=== PATIENT | male | born 1955 ===

== ENCOUNTER 2018-01-07 07:01 | Observation (INO) | payer OTHER, SELFPAY ==
[2018-01-07] MEDS ORDERED: Sodium Chloride 0.9% 1,000 ML IV ONE ×2 (07:57→12:32)
[2018-01-07] MEDS ORDERED: Sodium Chloride 0.9% 1,000 ML ONE (08:22)
[2018-01-07 08:38] LABS: BASO % 0.9 % (0.0-2.0); EOS # 0.1 K/uL (0.0-0.7); EOS % 2.6 % (0.0-4.0); HEMOGLOBIN 15.5 g/dL (12.0-18.0); LYMPH # 1.5 K/uL (1.0-4.3); LYMPH % 34.8 % (20.0-40.0); MEAN CORPUSCULAR HEMOGLOBIN 29.5 pg (27.0-31.0); MEAN CORPUSCULAR HGB CONC 34.2 g/dL (33.0-37.0); MONO # 0.2 K/uL (0.0-0.8); MONO % 5.5 % (0.0-10.0); NEUT # 2.5 K/uL (1.8-7.0); NEUT % 56.2 % (50.0-75.0); RBC 5.26 Mil/uL (4.40-5.90); RED CELL DISTRIBUTION WIDTH 14.5 % (11.5-14.5); WHITE BLOOD COUNT 4.4 K/uL (4.8-10.8)
[2018-01-07 08:45] LABS: URINE BILIRUBIN NEGATIVE (NEGATIVE); URINE BLOOD NEGATIVE (NEGATIVE); URINE CLARITY Clear (Clear); URINE COLOR Straw (YELLOW); URINE GLUCOSE (UA) NORMAL (Normal); URINE LEUKOCYTE ESTERASE NEG Leu/uL (Negative); URINE PROTEIN NEGATIVE (NEGATIVE); URINE UROBILINOGEN NORMAL mg/dL (0.2-1.0)
[2018-01-07 08:54] LABS: ALB/GLOB RATIO 1.2 (1.0-2.1); ALBUMIN 4.2 g/dL (3.5-5.0); ALT/SGPT 36 U/L (21-72); AST/SGOT 35 U/L (17-59); BLOOD UREA NITROGEN 18 mg/dL (9-20); CALCIUM 9.5 mg/dl (8.6-10.4); GFR AFRICAN-AMERICAN > 60; GFR NON-AFRICAN AMERICAN > 60; LIPASE 215 U/L (23-300)
--- NOTE | 2018-01-07 09:09 | C.PDOC ---
History Of Present Illness 62 year old male with no significant PMH presents to ED with complaints of right inguinal pain for 4 days. He states the pain was mild and intermittent to RLQ and radiates to groin and thigh. He describes it as tightness. He states the pain has progressively worsened. He states today the pain has become more severe and persistent. He states it is painful with movement. He denies any fever, nausea, vomiting, flank or back pain, testicular pain or swelling, penile pain or discharge, dysuria or hematuria, constipation. Reports last bowel movement yesterday and no loss of appetite had breakfast this morning. Time Seen by Provider: 01/07/18 07:44 Chief Complaint (Nursing): Abdominal Pain History Per: Patient History/Exam Limitations: no limitations Onset/Duration Of Symptoms: Days Current Symptoms Are (Timing): Still Present Severity: Moderate Past Medical History Reviewed: Historical Data, Nursing Documentation, Vital Signs Vital Signs: Last Vital Signs Temp 98 F 01/07/18 15:22 Pulse 56 L 01/07/18 15:22 Resp 18 01/07/18 15:22 BP 135/73 01/07/18 15:22 Pulse Ox 98 01/07/18 16:22 - Medical History PMH: HTN, Hypothyroidism Family History: States: No Known Family Hx - Social History Hx Tobacco Use: No Hx Alcohol Use: No Hx Substance Use: No - Immunization History Hx Tetanus Toxoid Vaccination: No Hx Influenza Vaccination: No Hx Pneumococcal Vaccination: No Review Of Systems Constitutional: Negative for: Fever Gastrointestinal: Positive for: Abdominal Pain. Negative for: Nausea, Vomiting , Diarrhea, Constipation Genitourinary: Negative for: Dysuria, Incontinence, Hematuria, Penile Discharge , Scrotal Pain, Penile Pain Musculoskeletal: Negative for: Back Pain Neurological: Negative for: Weakness, Numbness, Headache, Dizziness Physical Exam - Physical Exam Appears: Non-toxic, No Acute Distress, Other (uncomfortable) Skin: Warm, Dry Head: Atraumatic, Normacephalic Eye(s): bilateral: Normal Inspection, EOMI Oral Mucosa: Moist Lips: Normal Appearing Neck: Normal ROM Cardiovascular: Rhythm Regular, No Murmur Respiratory: Normal Breath Sounds, No Accessory Muscle Use Gastrointestinal/Abdominal: Soft, Tenderness (RLQ), No Guarding, No Rebound, No Hernia Male Genital: No Testicular Tenderness, No Testicular Swelling, Circumcised, Other (moderately tender to right inguinal area. No swelling, mass, erythema. Negative phren's sign) Extremity: Other Extremity: Bilateral: Atraumatic, Normal ROM Neurological/Psych: Oriented x3, Normal Speech Gait: Steady ED Course And Treatment - Laboratory Results Result Diagrams: 01/07/18 08:33 01/07/18 08:33 O2 Sat by Pulse Oximetry: 98 - CT Scan/US Testicular Other Rad Studies (CT/US): Read By Radiologist, Radiology Report Reviewed CT/US Interpretation: Accession No. : [id number]. Patient Name / ID : JOSE ANGEL AGUILAR / [id number]. Exam Date : 01/07/2018 09:04:10 ( Approved ). Study Comment : Sex / Age : M / 62Y. Creator : Aman Rincon MD. Dictator : Aman Rincon MD. [employer] : Cleaning Handyman : Aman Rincon MD. Approver2 : Report Date : 01/07/2018 10:10:27. My Comment : . This report is currently processing and HAS NOT BEEN OFFICIALLY SIGNED BY THE PHYSICIAN - ESTIMATED TIME OF APPROVAL IS 01/07/2018 10:16. HISTORY: Right inguinal pain. TECHNIQUE: Realtime sonography through the scrotum with color and doppler flow. COMPARISON: None Available. FINDINGS: RIGHT TESTICLE: Measures 5.1 x 2.4 x 3.4 cm. Normal echotexture and flow. RIGHT EPIDIDYMIS: Grossly unremarkable appearance with normal flow. LEFT TESTICLE: Measures 4.7 x 2.4 x 3.3 cm. Normal echotexture and flow. LEFT EPIDIDYMIS: Grossly unremarkable appearance with normal flow. HYDROCELE: Minimal bilateral complex hydrocele, nonspecific. VARICOCELE: None. OTHER FINDINGS: None. IMPRESSION: No evidence of testicular torsion. No evidence of epididymo- orchitis. Minimal bilateral complex hydrocele, nonspecific. Otherwise unremarkable. Medical Decision Making Medical Decision Making: Impression: Right inguinal pain Plan: * Labs * UA * US * CT Abd/pelvis * IV NS, Toradol * EKG Progress: Patient placed on police aide, sinus bradycardia Labs reviewed and unremarkable. Urine clean Testicular US shows No evidence of testicular torsion. No evidence of epididymo -orchitis. Minimal bilateral complex hydrocele, nonspecific. Otherwise unremarkable. Patient continued to complain of pain, Morphine was orderd and CT pending CT reviewed showing no evidence of appendicitis, diverticulitis, nephrolithiasis or other acute abnormality Patient re-evaluated and remains sinus bradycardia low 40s and he continues to complain of pain, unchanged Discussed case with attending Dr Perez who also examined patient at bedside. Patient has normal femoral and distal pulses, no calf tenderness, no hernia on exam. He recommends additional analgesics and to contact hospitalist for admission of bradycardia and intractable pain Explained results to the patient who is agreeable with plan of obs admission Contact hospitalist Dr Clemente Pierre who accepts case and will come to ED to evaluate. Disposition - Disposition Disposition: HOSPITALIZED Disposition Time: 14:10 Condition: STABLE - POA Present On Arrival: None - Clinical Impression Clinical Impression: Bradycardia, Intractable lower abdominal pain - Scribe Statement The provider has reviewed the documentation as recorded by the Scribe (Wilson Corbett) All medical record entries made by the Scribe were at my direction and personally dictated by me. I have reviewed the chart and agree that the record accurately reflects my personal performance of the history, physical exam, medical decision making, and the department course for this patient. I have also personally directed, reviewed, and agree with the discharge instructions and disposition. Decision To Admit - Pt Status Changed To: Hospital Disposition Of: Observation - . Bed Request Type: Telemetry Admitting Physician: Flaco Pierre Patient Diagnosis: Bradycardia, Intractable lower abdominal pain
[2018-01-07] MEDS ORDERED: Iodixanol 320 MG/ML 100 ML BOTTLE IV ONE (10:09)
--- NOTE | 2018-01-07 10:11 | US ---
HISTORY: Right inguinal pain TECHNIQUE: Realtime sonography through the scrotum with color and doppler flow. COMPARISON: None Available. FINDINGS: RIGHT TESTICLE: Measures 5.1 x 2.4 x 3.4 cm. Normal echotexture and flow. RIGHT EPIDIDYMIS: Grossly unremarkable appearance with normal flow. LEFT TESTICLE: Measures 4.7 x 2.4 x 3.3 cm. Normal echotexture and flow. LEFT EPIDIDYMIS: Grossly unremarkable appearance with normal flow. HYDROCELE: Minimal bilateral complex hydrocele, nonspecific. VARICOCELE: None. OTHER FINDINGS: None. IMPRESSION: No evidence of testicular torsion. No evidence of epididymo-orchitis. Minimal bilateral complex hydrocele, nonspecific. Otherwise unremarkable.
[2018-01-07] MEDS ORDERED: Morphine 4 MG/ML VIAL ONE (11:01)
--- NOTE | 2018-01-07 13:09 | CT ---
PROCEDURE: CT scan abdomen pelvis dated 01/07/2018 HISTORY: RLQ and inguinal pain COMPARISON: Correlation made with testicular ultrasound. TECHNIQUE: Contiguous axial images of the abdomen and pelvis performed of following intravenous injection of approximately 100 cc Visipaque 320 contrast material. Additional 2D sagittal and coronal reformats generated. Radiation dose: Total exam DLP = [address] exam was performed using one or more of the following dose reduction techniques: Automated exposure control, adjustment of the mA and/or kV according to patient size, and/or use of iterative reconstruction technique. . FINDINGS: LOWER THORAX: Lung bases clear. No infiltrate effusion or basilar pneumothorax. Heart size upper limits normal. No significant pericardial. LIVER: Liver exhibits normal size measuring just over 17 cm CC dimension. There appears be minimal fatty hepatic infiltration. No obvious hepatic mass or collection. There are at least 2 small hepatic calcifications consistent with calcified granulomata and prior exposure to granulomatous process. . Portal and splenic veins opacified. GALLBLADDER AND BILE DUCTS: Gallbladder physiologically distended. No evidence intraluminal gallbladder calculi. . PANCREAS: Pancreas appears slightly atrophic and fatty replaced. No pancreatic masses collections or calcifications. SPLEEN: Spleen exhibits normal size. Multiple small calcified granuloma consistent prior exposure to granulomatous disease process. ADRENALS: There are no adrenal lesions. Kidneys demonstrate symmetric nephrograms. No evidence of nephrolithiasis or hydronephrosis. . There are multiple large right renal cyst, the largest of which 2 is exophytic arising from the posterior aspect upper/midpole left kidney which measures approximately 4.1 x 3.6 cm. . KIDNEYS AND URETERS: Unremarkable. No stone or hydronephrosis. BLADDER: Urinary bladder is incompletely distended which part accounts for thick-walled appearance. Muscular hypertrophy presumably contributes. Possibility of a cystitis in a male patient less likely though not excluded. Other intrinsic wall abnormality also not excluded. REPRODUCTIVE: Prostate gland measures approximately 5.1 cm in transverse dimension. Prostatic calcifications are present. APPENDIX: Normal-appearing appendix. BOWEL: Evaluation of the bowel is limited due to the lack of oral contrast material. Stomach is incompletely distended. Visualized loops of small bowel exhibit normal contour and caliber. No evidence mechanical small bowel obstruction. Stool is seen throughout the large bowel. There are multiple colonic diverticula seen along the sigmoid, descending and transverse colon. No radiographic evidence acute diverticulitis PERITONEUM: Unremarkable. No fluid collection. No free air. Small fat containing umbilical hernia. LYMPH NODES: Unremarkable. No enlarged lymph nodes. VASCULATURE: Unremarkable. No aortic aneurysm. BONES: Multilevel degenerative spondylosis of the lower lumbar and to a lesser degree lower thoracic spine. No acute compression fractures no retropulsed fragments. OTHER FINDINGS: Previously described bilateral hydroceles seen on recent testicular ultrasound less well seen on this study. IMPRESSION: Splenic and hepatic calcified granulomata consistent with prior exposure to granulomatous disease process. . Multiple right renal cyst. Diverticulosis without radiographic evidence acute diverticulitis. Wall thickening of the urinary bladder likely due to incomplete distention and muscular hypertrophy however cystitis or other intrinsic bladder wall lesion not excluded.
[2018-01-07] MEDS ORDERED: LIDOCAINE IV STA (14:08)
[2018-01-07] MEDS ORDERED: SODIUM CHLORIDE 0.9% IV STA (14:08)
[2018-01-07 17:54] VITALS: RESP 20
--- NOTE | 2018-01-07 20:02 | CP.PCM.HP ---
History of Present Illness - History of Present Illness History of Present Illness: Patient is a 62M with a PMH of hypothyroidism and HTN who comes to the ED with a CC of R. Groin pain. He states the pain started 4 days ago and has worsened since then. The pain was intermittent in the beginning but has since become constant. Nothing makes the pain better but walking and sitting up makes the pain worse. He describes it as sharp in nature and radiating to the right hip. He denies any [ain with urination, hematuria, cva tenderness, frequency, abdominal pain or nausea or vomiting, fever or chills. Denies chest pain or SOB. Cannot identify a precipitating factor. Of note the patient is bradycardic in the 50s but was like this on prior admissions and is asymptomatic. PMH: Hypothyroid and HTN PSH: none FH: unremarkable SH: denies smoking drinking and drugs All: NKA Present on Admission - Present on Admission Any Indicators Present on Admission: No Review of Systems - Review of Systems Review of Systems: as per HPI Past Patient History - Infectious Disease Hx of Infectious Diseases: None - Past Social History Smoking Status: Never Smoked - CARDIAC Hx Hypertension: Yes - ENDOCRINE/METABOLIC Hx Hypothyroidism: Yes - PSYCHIATRIC Hx Substance Use: No - ANESTHESIA Hx Anesthesia: No Meds Allergies/Adverse Reactions: Allergies Allergy/AdvReac Type Severity Reaction Status Date / Time Penicillins Allergy ANAPHYLAXIS Verified 01/07/18 07:17 Physical Exam - Constitutional Appears: Well - Head Exam Head Exam: ATRAUMATIC, NORMAL INSPECTION, NORMOCEPHALIC - Eye Exam Eye Exam: EOMI, Normal appearance, PERRL Pupil Exam: NORMAL ACCOMODATION, PERRL - ENT Exam ENT Exam: Mucous Membranes Moist, Normal Exam - Neck Exam Neck exam: Positive for: Normal Inspection - Respiratory Exam Respiratory Exam: Clear to Auscultation Bilateral, NORMAL BREATHING PATTERN - Cardiovascular Exam Cardiovascular Exam: REGULAR RHYTHM - GI/Abdominal Exam GI & Abdominal Exam: Normal Bowel Sounds, Soft. absent: Tenderness - Exam Exam: NORMAL INSPECTION. absent: Scrotal Swelling, Testicular Tenderness ( tenderness over the right inguinal ligament and proximal portion or Right thigh) - Extremities Exam Extremities exam: Positive for: normal inspection - Back Exam Back exam: NORMAL INSPECTION - Neurological Exam Neurological exam: Alert, CN II-XII Intact, Normal Gait, Oriented x3, Reflexes Normal - Psychiatric Exam Psychiatric exam: Normal Affect, Normal Mood - Skin Skin Exam: Dry, Intact, Normal Color, Warm Results - Vital Signs Recent Vital Signs: Last Vital Signs Temp 97.6 F 01/07/18 17:45 Pulse 42 L 01/07/18 17:45 Resp 20 01/07/18 17:45 BP 148/84 01/07/18 17:45 Pulse Ox 99 01/07/18 17:45 - Labs Result Diagrams: 01/07/18 08:33 01/07/18 08:33 Labs: Laboratory Results - last 24 hr 01/07/18 01/07/18 01/07/18 08:33 08:33 08:33 WBC 4.4 L RBC 5.26 Hgb 15.5 Hct 45.2 MCV 86.0 MCH 29.5 MCHC 34.2 RDW 14.5 Plt Count 294 MPV 8.0 Neut % (Auto) 56.2 Lymph % (Auto) 34.8 [place] % (Auto) 5.5 Eos % (Auto) 2.6 Baso % (Auto) 0.9 Neut # (Auto) 2.5 Lymph # (Auto) 1.5 [place] # (Auto) 0.2 Eos # (Auto) 0.1 Baso # (Auto) 0.0 Sodium 143 Potassium 4.5 Chloride 108 H Carbon Dioxide 22 Anion Gap 18 BUN 18 Creatinine 1.0 Est GFR ( Amer) > 60 Est GFR (Non-Af Amer) > 60 Random Glucose 110 Calcium 9.5 Total Bilirubin 0.6 AST 35 ALT 36 Alkaline Phosphatase 44 Total Protein 7.7 Albumin 4.2 Globulin 3.5 Albumin/Globulin Ratio 1.2 Lipase 215 Urine Color Straw Urine Clarity Clear Urine pH 5.0 Ur Specific [place] 1.016 Urine Protein Negative Urine Glucose (UA) Normal Urine Ketones Negative Urine Blood Negative Urine Nitrate Negative Urine Bilirubin Negative Urine Urobilinogen Normal Ur Leukocyte Esterase Neg Urine WBC (Auto) < 1 Assessment & Plan (1) Groin pain Assessment and Plan: Toradol 30 Q6H Ice pack Q1H Status: Acute Priority: Medium (2) Hypothyroidism Assessment and Plan: levothyroxine 50 PO QD check TSH Status: Chronic Priority: High (3) HTN (hypertension) Assessment and Plan: Zestril 10 PO qd HCTZ 12.5 PO QD Status: Chronic Priority: Medium (4) Prophylactic measure Assessment and Plan: scd GI PPX not indicated at this time Status: Chronic Priority: Low
[2018-01-08] MEDS ORDERED: Levothyroxine 50 MCG TAB PO SCH (06:30)
[2018-01-08 08:04] VITALS: BP 134/81; PULSE 44; TEMP 97.5; O2SAT 98
[2018-01-08] MEDS ORDERED: Enoxaparin 40 mg Syringe SC SCH (10:00)
--- NOTE | 2018-01-08 11:01 | CP.PCM.DIS ---
Provider - Provider Date of Admission: 01/07/18 14:14 Attending physician: Flaco Pierre MD Primary care physician: None Consults: None Time Spent in preparation of Discharge (in minutes): 45 Diagnosis - Discharge Diagnosis (1) Groin pain Status: Acute Priority: Medium (2) Hypothyroidism Status: Chronic Priority: High (3) HTN (hypertension) Status: Chronic Priority: Medium (4) Prophylactic measure Status: Chronic Priority: Low Hospital Course - Lab Results Lab Results: Micro Results 01/07/18 08:33 Urine Urine Culture - Final No Growth (<1,000 CFU/ML) Most Recent Lab Values WBC 4.4 K/uL (4.8-10.8) L 01/07/18 08:33 RBC 5.26 Mil/uL (4.40-5.90) 01/07/18 08:33 Hgb 15.5 g/dL (12.0-18.0) 01/07/18 08:33 Hct 45.2 % (35.0-51.0) 01/07/18 08:33 MCV 86.0 fL (80.0-94.0) 01/07/18 08:33 MCH 29.5 pg (27.0-31.0) 01/07/18 08:33 MCHC 34.2 g/dL (33.0-37.0) 01/07/18 08:33 RDW 14.5 % (11.5-14.5) 01/07/18 08:33 Plt Count 294 K/uL (130-400) 01/07/18 08:33 MPV 8.0 fL (7.2-11.7) 01/07/18 08:33 Neut % (Auto) 56.2 % (50.0-75.0) 01/07/18 08:33 Lymph % (Auto) 34.8 % (20.0-40.0) 01/07/18 08:33 [place] % (Auto) 5.5 % (0.0-10.0) 01/07/18 08:33 Eos % (Auto) 2.6 % (0.0-4.0) 01/07/18 08:33 Baso % (Auto) 0.9 % (0.0-2.0) 01/07/18 08:33 Neut # (Auto) 2.5 K/uL (1.8-7.0) 01/07/18 08:33 Lymph # (Auto) 1.5 K/uL (1.0-4.3) 01/07/18 08:33 [place] # (Auto) 0.2 K/uL (0.0-0.8) 01/07/18 08:33 Eos # (Auto) 0.1 K/uL (0.0-0.7) 01/07/18 08:33 Baso # (Auto) 0.0 K/uL (0.0-0.2) 01/07/18 08:33 Sodium 143 mmol/L (132-148) 01/07/18 08:33 Potassium 4.5 mmol/L (3.6-5.2) 01/07/18 08:33 Chloride 108 mmol/L (98-107) H 01/07/18 08:33 Carbon Dioxide 22 mmol/L (22-30) 01/07/18 08:33 Anion Gap 18 (10-20) 01/07/18 08:33 BUN 18 mg/dL (9-20) 01/07/18 08:33 Creatinine 1.0 mg/dL (0.8-1.5) 01/07/18 08:33 Est GFR ( Amer) > 60 01/07/18 08:33 Est GFR (Non-Af Amer) > 60 01/07/18 08:33 Random Glucose 110 mg/dL (75-110) 01/07/18 08:33 Calcium 9.5 mg/dl (8.6-10.4) 01/07/18 08:33 Total Bilirubin 0.6 mg/dL (0.2-1.3) 01/07/18 08:33 AST 35 U/L (17-59) 01/07/18 08:33 ALT 36 U/L (21-72) 01/07/18 08:33 Alkaline Phosphatase 44 U/L (38-126) 01/07/18 08:33 Total Protein 7.7 g/dL (6.3-8.3) 01/07/18 08:33 Albumin 4.2 g/dL (3.5-5.0) 01/07/18 08:33 Globulin 3.5 gm/dL (2.2-3.9) 01/07/18 08:33 Albumin/Globulin Ratio 1.2 (1.0-2.1) 01/07/18 08:33 Lipase 215 U/L (23-300) 01/07/18 08:33 TSH 3rd Generation 8.68 mIU/L (0.46-4.68) H 01/08/18 08:13 Urine Color Straw (YELLOW) 01/07/18 08:33 Urine Clarity Clear (Clear) 01/07/18 08:33 Urine pH 5.0 (5.0-8.0) 01/07/18 08:33 Ur Specific [place] 1.016 (1.003-1.030) 01/07/18 08:33 Urine Protein Negative mg/dL (NEGATIVE) 01/07/18 08:33 Urine Glucose (UA) Normal mg/dL (Normal) 01/07/18 08:33 Urine Ketones Negative mg/dL (NEGATIVE) 01/07/18 08:33 Urine Blood Negative (NEGATIVE) 01/07/18 08:33 Urine Nitrate Negative (NEGATIVE) 01/07/18 08:33 Urine Bilirubin Negative (NEGATIVE) 01/07/18 08:33 Urine Urobilinogen Normal mg/dL (0.2-1.0) 01/07/18 08:33 Ur Leukocyte Esterase Neg Liz/uL (Negative) 01/07/18 08:33 Urine WBC (Auto) < 1 /hpf (0-5) 01/07/18 08:33 - Hospital Course Hospital Course: Patient is a 62M with a PMH of hypothyroidism and HTN who comes to the ED with a CC of R. Groin pain. He states the pain started 4 days ago and has worsened since then. The pain was intermittent in the beginning but has since become constant. Nothing makes the pain better but walking and sitting up makes the pain worse. He describes it as sharp in nature and radiating to the right hip. He denies any [ain with urination, hematuria, cva tenderness, frequency, abdominal pain or nausea or vomiting, fever or chills. Denies chest pain or SOB. Cannot identify a precipitating factor. Of note the patient is bradycardic in the 50s but was like this on prior admissions and is asymptomatic. Hospital course: Patient had groin pain with all negaive studies. They showed bilateral hydroceles. Patient was given toradol for the pain as well as flexeril. Pain improved but did not resolve. [place] likely MSK in nature. Patient was bradycardic in the 40-50s but was like this on his last admission. Is most likely related to his hypothyroidsim. I tested TSH which was elevated indicated he is most likely undertreated with his synthroid. He was instructed to follow up in the clinic. Discharge Exam - Head Exam Head Exam: ATRAUMATIC, NORMAL INSPECTION, NORMOCEPHALIC - Eye Exam Eye Exam: EOMI, Normal appearance, PERRL Pupil Exam: NORMAL ACCOMODATION, PERRL - Respiratory Exam Respiratory Exam: Clear to PA & Lateral, NORMAL BREATHING PATTERN, UNREMARKABLE - Cardiovascular Exam Cardiovascular Exam: REGULAR RHYTHM - GI/Abdominal Exam GI & Abdominal Exam: Normal Bowel Sounds, Soft, Unremarkable. absent: Distended , Tenderness - Neurological Exam Neurological exam: Alert, CN II-XII Intact, Normal Gait, Oriented x3, Reflexes Normal - Psychiatric Exam Psychiatric exam: Normal Affect, Normal Mood - Skin Skin Exam: Dry, Intact, Normal Color, Warm Discharge Plan - Discharge Medications Prescriptions: Cyclobenzaprine [Flexeril] 5 mg PO TID #25 tab Ketorolac Tromethamine [Toradol] 10 mg PO TID #25 tab - Follow Up Plan Condition: STABLE Disposition: HOME/ ROUTINE Instructions: Ketorolac (Systemic), Bradycardia (DC), Hypothyroidism ( Underactive Thyroid) (DC), Cyclobenzaprine, Acute Abdominal Pain (DC), Hypertension (DC), Acute Abdominal Pain (GEN) Additional Instructions: Please follow up With your regular doctor in 7-10 days Please follow up in our clinic in 7-10 days for evaluation of your Thyroid function test as well as your pain. Your TSH level was 8.68 and you may need an increased dose of your synthroid. This may be the cause of you bradycardia. Please continue to take the flexeril and toradol as needed for pain Please continue your home medications. Referrals: [facility] [Outside]
--- NOTE | 2018-01-08 15:43 | CARD ---
APPROVED REPORT EKG Measurement Heart [id number] <Conclusion> Marked sinus bradycardia Abnormal ECG
== END 2018-01-08 13:31 | disposition home or self-care (01) ==
LOC: C.ER 07:01 → C.9E 14:14 → C.5S 15:45
PROVIDERS: ADMIT Family Medicine; ATTEND Family Medicine
DX: N43.3 Hydrocele, unspecified (principal); I10 Essential (primary) hypertension; E03.9 Hypothyroidism, unspecified; Z88.0 Allergy status to penicillin
CPT/HCPCS: 36415; 74177; 76870; 80053; 81001; 83690; 84443; 85025; 87086; 93005; 96360; 96374; 99285; G0378; J1650; J1885; J2001; J2270; J7040; Q9967

== ENCOUNTER 2018-01-14 10:29 | Inpatient (IN) | payer OTHER ==
--- NOTE | 2018-01-14 12:17 | C.PDOC ---
History Of Present Illness 62 y/o male presents to the ER complaining of right groin pain which began 1 week ago. Patient states that the pain was initially intermittent and then became persistent. Patient states that he was admitted in [facility] on for bradycardia and intractable abdominal pain. The pain persisted so he went to another hospital and he was diagnosed with an inguinal hernia.Patient saw Dr. Box in his office yesterday and he was instructed to come to the ER for further evaluation. Denies having testicular pain, dysuria, abdominal pain, urinary frequency, and fever. Time Seen by Provider: 01/14/18 12:09 Chief Complaint (Nursing): Abdominal Pain History Per: Patient History/Exam Limitations: no limitations Onset/Duration Of Symptoms: Days Current Symptoms Are (Timing): Still Present Severity: Moderate Past Medical History Reviewed: Historical Data, Nursing Documentation, Vital Signs Vital Signs: Last Vital Signs Temp 98 F 01/14/18 16:40 Pulse 39 L 01/14/18 16:40 Resp 18 01/14/18 16:40 BP 137/80 01/14/18 16:40 Pulse Ox 100 01/14/18 17:32 - Medical History PMH: HTN, Hypothyroidism Other Surgeries: HX of surgeries Family History: States: No Known Family Hx - Social History Hx Tobacco Use: No Hx Alcohol Use: No Hx Substance Use: No - Immunization History Hx Tetanus Toxoid Vaccination: No Hx Influenza Vaccination: No Hx Pneumococcal Vaccination: No Review Of Systems Except As Marked, All Systems Reviewed And Found Negative. Constitutional: Negative for: Fever, Chills Gastrointestinal: Negative for: Abdominal Pain Genitourinary: Positive for: Other (right sided groin pain). Negative for: Dysuria, Frequency Physical Exam - Physical Exam Appears: Non-toxic, No Acute Distress Skin: Normal Color, Warm, Dry Head: Atraumatic, Normacephalic Eye(s): bilateral: Normal Inspection Nose: Normal Oral Mucosa: Moist Neck: Supple Chest: Symmetrical Cardiovascular: Rhythm Regular Respiratory: Normal Breath Sounds, No Rales, No Rhonchi, No Wheezing Gastrointestinal/Abdominal: Normal Exam, Soft, No Tenderness Male Genital: No Testicular Tenderness, Other (tenderness to palpation to right groin) Neurological/Psych: Oriented x3, Normal Speech ED Course And Treatment - Laboratory Results Result Diagrams: 01/14/18 12:44 01/14/18 12:44 O2 Sat by Pulse Oximetry: 100 (RA) Pulse Ox Interpretation: Normal - Other Rad CXR X-Ray: Viewed By Me, Read By Radiologist Interpretation: HISTORY: preop. COMPARISON: Correlation made with prior CT scan abdomen pelvis 01/07/2018 which imaged both lung bases. TECHNIQUE: Chest PA and lateral. FINDINGS: LUNGS: Biapical pleural thickening. No focal consolidation. PLEURA: No significant pleural effusion identified. No pneumothorax apparent. CARDIOVASCULAR: Normal. OSSEOUS STRUCTURES: No significant abnormalities. VISUALIZED UPPER ABDOMEN: Normal. OTHER FINDINGS: None. IMPRESSION: Biapical pleural thickening. No focal consolidation. Progress Note: Labs and CXR ordered. Patient given IV Fluids. Case discussed with Dr. Box. Patient will be admitted under Dr. Box' service with the hospitalist's clearance.Cardiology will be on consult. Disposition - Disposition Disposition: HOSPITALIZED - PA / MANAGER [employer] / Resident Statement MD/DO has reviewed & agrees with the documentation as recorded. - Scribe Statement The provider has reviewed the documentation as recorded by the [employer] [place] Provider Attestation All medical record entries made by the Sissyibwill were at my direction and personally dictated by me. I have reviewed the chart and agree that the record accurately reflects my personal performance of the history, physical exam, medical decision making, and the department course for this patient. I have also personally directed, reviewed, and agree with the discharge instructions and disposition.
[2018-01-14] MEDS ORDERED: Sodium Chloride 0.9% 1,000 ML IV ONE (12:31)
[2018-01-14 12:49] LABS: BASO # 0.1 K/uL (0.0-0.2); BASO % 1.4 % (0.0-2.0); EOS # 0.1 K/uL (0.0-0.7); EOS % 1.7 % (0.0-4.0); HEMOGLOBIN 16.1 g/dL (12.0-18.0); LYMPH # 1.2 K/uL (1.0-4.3); LYMPH % 22.9 % (20.0-40.0); MEAN CELL VOLUME 86.8 fL (80.0-94.0); MEAN CORPUSCULAR HEMOGLOBIN 29.5 pg (27.0-31.0); MEAN PLATELET VOLUME 7.8 fL (7.2-11.7); MONO # 0.3 K/uL (0.0-0.8); MONO % 6.5 % (0.0-10.0); NEUT # 3.5 K/uL (1.8-7.0); NEUT % 67.5 % (50.0-75.0); NRBC % 0.1 % (0.0-2.0); RBC 5.47 Mil/uL (4.40-5.90); RED CELL DISTRIBUTION WIDTH 14.5 % (11.5-14.5); WHITE BLOOD COUNT 5.2 K/uL (4.8-10.8)
[2018-01-14 13:07] LABS: ALB/GLOB RATIO 1.2 (1.0-2.1); ALBUMIN 4.5 g/dL (3.5-5.0); ALT/SGPT 57 U/L (21-72); AST/SGOT 41 U/L (17-59); BLOOD UREA NITROGEN 20 mg/dL (9-20); CALCIUM 9.9 mg/dl (8.6-10.4); GFR AFRICAN-AMERICAN > 60; GFR NON-AFRICAN AMERICAN > 60
[2018-01-14 13:21] LABS: URINE BACTERIA RARE (<OCC); URINE BILIRUBIN NEGATIVE (NEGATIVE); URINE BLOOD NEGATIVE (NEGATIVE); URINE CLARITY Clear (Clear); URINE COLOR Yellow (YELLOW); URINE GLUCOSE (UA) NORMAL (Normal); URINE LEUKOCYTE ESTERASE NEG Leu/uL (Negative); URINE PROTEIN NEGATIVE (NEGATIVE); URINE UROBILINOGEN NORMAL mg/dL (0.2-1.0)
--- NOTE | 2018-01-14 13:42 | CP.PCM.CON ---
<Jack Chapasskellen Dukes - Last Filed: 01/14/18 17:00> History of Present Illness - History of Present Illness History of Present Illness: Medicine Consult: HPI: 62 year old male with past medical history of HTN and hypothyroidism who presents to the ED for evaluation of right groin pain. He states the pain has been present for 2 weeks, worsened about 1 week ago, and has been constant for the past week. He was seen in the [facility] ED on 01/05 for the same complaint, was discharged with Tylenol with codeine. He was also seen at [facility] ED on 01/08 and was discharged with referral to general surgery Dr. Box to evaluate for inguinal hernia repair. He currently rates the pain 29/06. He states the Tylenol with codeine has not improved his pain, and it worsens with walking. He denies fever, chills, chest pain, palpitations, shortness of breath, syncope, headache, dizziness, lightheadedness, abdominal pain, nausea, vomiting, diarrhea, constipation, dysuria or hematuria. PMD: None Past Medical History: HTN, Hypothyroid Past Surgical History: Denies Medications: Lisinopril/HCTZ 10mg/12.5mg PO QD, Synthroid 50 mcg PO QAM Allergies: penicillin (rash) Family History: denies familial cardiac history or cancer history Social History: denies current/past tobacco or drug use; reports social alcohol drinking (less than one drink monthly); works on and off as house painter; lives with son (Allan Manley [phone]) Review of Systems - Constitutional Constitutional: absent: Chills - EENT Ears: absent: Dizziness - Cardiovascular Cardiovascular: absent: Chest Pain, Dyspnea, Palpitations - Respiratory Respiratory: absent: Cough, Dyspnea - Gastrointestinal Gastrointestinal: absent: Abdominal Pain, Diarrhea, Nausea, Vomiting - Genitourinary Genitourinary: absent: Dysuria Additional comments: right lower pelvic pain - Musculoskeletal Musculoskeletal: absent: Numbness - Neurological Neurological: absent: Dizziness, Headaches, Syncope, Weakness Past Patient History - Infectious Disease Hx of Infectious Diseases: None - Past Social History Smoking Status: Never Smoked - CARDIAC Hx Hypertension: Yes - ENDOCRINE/METABOLIC Hx Hypothyroidism: Yes - PSYCHIATRIC Hx Substance Use: No - SURGICAL HISTORY Hx Surgeries: Yes Hx Herniorrhaphy: Yes (01/07/18) - ANESTHESIA Hx Anesthesia: Yes Hx Anesthesia Reactions: No Meds Allergies/Adverse Reactions: Allergies Allergy/AdvReac Type Severity Reaction Status Date / Time Penicillins Allergy ANAPHYLAXIS Verified 01/14/18 11:15 - Medications Medications: Current Medications Sodium Chloride (Sodium Chloride 0.9%) 1,000 mls @ 100 mls/hr IV .Q10H ONE Stop: 01/14/18 22:30 Physical Exam - Constitutional Appears: No Acute Distress - Head Exam Head Exam: ATRAUMATIC, NORMAL INSPECTION - Eye Exam Eye Exam: EOMI, Normal appearance - ENT Exam ENT Exam: Mucous Membranes Moist - Respiratory Exam Respiratory Exam: Clear to Auscultation Bilateral, NORMAL BREATHING PATTERN - Cardiovascular Exam Cardiovascular Exam: Bradycardia, REGULAR RHYTHM, +S1, +S2. absent: Gallop, JVD , RRR - GI/Abdominal Exam GI & Abdominal Exam: Normal Bowel Sounds, Soft. absent: Tenderness - Exam Additional comments: Left and right groin- not tender; no adenopathy - Extremities Exam Extremities exam: Positive for: normal inspection. Negative for: pedal edema, tenderness - Neurological Exam Neurological exam: Alert, CN II-XII Intact, Oriented x3 - Psychiatric Exam Psychiatric exam: Normal Affect, Normal Mood - Skin Skin Exam: Normal Color Results - Vital Signs Recent Vital Signs: Last Vital Signs Temp 97.5 F L 01/14/18 11:10 Pulse 51 L 01/14/18 11:10 Resp 16 01/14/18 11:10 BP 103/77 01/14/18 11:10 Pulse Ox 100 01/14/18 12:17 - Labs Result Diagrams: 01/14/18 12:44 01/14/18 12:44 Labs: Laboratory Results - last 24 hr 01/14/18 01/14/18 01/14/18 12:44 12:44 13:00 WBC 5.2 RBC 5.47 Hgb 16.1 Hct 47.5 MCV 86.8 MCH 29.5 MCHC 34.0 RDW 14.5 Plt Count 273 MPV 7.8 Neut % (Auto) 67.5 Lymph % (Auto) 22.9 Franklin % (Auto) 6.5 Eos % (Auto) 1.7 Baso % (Auto) 1.4 Neut # (Auto) 3.5 Lymph # (Auto) 1.2 Franklin # (Auto) 0.3 Eos # (Auto) 0.1 Baso # (Auto) 0.1 Sodium 144 Potassium 5.0 Chloride 104 Carbon Dioxide 28 Anion Gap 18 BUN 20 Creatinine 1.0 Est GFR ( Amer) > 60 Est GFR (Non-Af Amer) > 60 Random Glucose 96 Calcium 9.9 Total Bilirubin 1.2 AST 41 ALT 57 Alkaline Phosphatase 48 Total Protein 8.1 Albumin 4.5 Globulin 3.6 Albumin/Globulin Ratio 1.2 Urine Color Yellow Urine Clarity Clear Urine pH 5.0 Ur Specific [place] 1.018 Urine Protein Negative Urine Glucose (UA) Normal Urine Ketones Negative Urine Blood Negative Urine Nitrate Negative Urine Bilirubin Negative Urine Urobilinogen Normal Ur Leukocyte Esterase Neg Urine WBC (Auto) < 1 Urine Bacteria Rare Assessment & Plan - Assessment and Plan (Free Text) Assessment: 1. Right Inguinal hernia General surgery: Dr. Box - Preoperative medical clearance * EKG: Sinus Bradycardia * Chest X-ray: Biapical pleural thickening. No focal consolidation. * f/u ECHO * Trop: negative * BNP 84 Cardiac Risk Index in Noncardiac surgery: Class I (6% Complication) Cardiology consult: Dr. Mccormick --> help appreciated 2.) Asymptomatic Bradycardia - EKG: Sinus Bradycardia 3.) History of HTN - continue home medications - lisinopril/HCTZ 10mg 4.) History of Hypothyroid - TSH: 6.30 (previous 8.68 on 01/08/18) - free T4: 1.18 - Continue home medication: Synthroid 50 mcg PO QAM - f/u Thyroid US Case discussed with Dr. Lesley Chapa PGY-1 <Usha Sutton V - Last Filed: 01/14/18 18:42> Meds - Medications Medications: Current Medications Hydrochlorothiazide (Microzide) 12.5 mg PO DAILY ALAN Sodium Chloride (Sodium Chloride 0.9%) 1,000 mls @ 100 mls/hr IV .Q10H ONE Stop: 01/14/18 22:30 Last Admin: 01/14/18 14:18 Dose: 100 mls/hr Levothyroxine Sodium (Synthroid) 50 mcg PO DAILY@0630 ALAN Lisinopril (Zestril) 10 mg PO DAILY ALAN Results - Vital Signs Recent Vital Signs: Last Vital Signs Temp 98 F 01/14/18 16:40 Pulse 39 L 01/14/18 16:40 Resp 18 01/14/18 16:40 BP 137/80 01/14/18 16:40 Pulse Ox 100 01/14/18 17:33 - Labs Result Diagrams: 01/14/18 12:44 01/14/18 12:44 Labs: Laboratory Results - last 24 hr 01/14/18 01/14/18 01/14/18 12:44 12:44 13:00 WBC 5.2 RBC 5.47 Hgb 16.1 Hct 47.5 MCV 86.8 MCH 29.5 MCHC 34.0 RDW 14.5 Plt Count 273 MPV 7.8 Neut % (Auto) 67.5 Lymph % (Auto) 22.9 Franklin % (Auto) 6.5 Eos % (Auto) 1.7 Baso % (Auto) 1.4 Neut # (Auto) 3.5 Lymph # (Auto) 1.2 Franklin # (Auto) 0.3 Eos # (Auto) 0.1 Baso # (Auto) 0.1 PT INR APTT Sodium 144 Potassium 5.0 Chloride 104 Carbon Dioxide 28 Anion Gap 18 BUN 20 Creatinine 1.0 Est GFR ( Amer) > 60 Est GFR (Non-Af Amer) > 60 Random Glucose 96 Calcium 9.9 Total Bilirubin 1.2 AST 41 ALT 57 Alkaline Phosphatase 48 Troponin I NT-Pro-B Natriuret Pep Total Protein 8.1 Albumin 4.5 Globulin 3.6 Albumin/Globulin Ratio 1.2 Free T4 TSH 3rd Generation 6.30 H Urine Color Yellow Urine Clarity Clear Urine pH 5.0 Ur Specific [place] 1.018 Urine Protein Negative Urine Glucose (UA) Normal Urine Ketones Negative Urine Blood Negative Urine Nitrate Negative Urine Bilirubin Negative Urine Urobilinogen Normal Ur Leukocyte Esterase Neg Urine WBC (Auto) < 1 Urine Bacteria Rare Blood Type Antibody Screen 01/14/18 01/14/18 01/14/18 13:39 13:39 14:56 WBC RBC Hgb Hct MCV MCH MCHC RDW Plt Count MPV Neut % (Auto) Lymph % (Auto) Franklin % (Auto) Eos % (Auto) Baso % (Auto) Neut # (Auto) Lymph # (Auto) [place] # (Auto) Eos # (Auto) Baso # (Auto) PT 10.7 INR 1.0 APTT 32 Sodium Potassium Chloride Carbon Dioxide Anion Gap BUN Creatinine Est GFR ( Amer) Est GFR (Non-Af Amer) Random Glucose Calcium Total Bilirubin AST ALT Alkaline Phosphatase Troponin I NT-Pro-B Natriuret Pep Total Protein Albumin Globulin Albumin/Globulin Ratio Free T4 1.18 TSH 3rd Generation Urine Color Urine Clarity Urine pH Ur Specific [place] Urine Protein Urine Glucose (UA) Urine Ketones Urine Blood Urine Nitrate Urine Bilirubin Urine Urobilinogen Ur Leukocyte Esterase Urine WBC (Auto) Urine Bacteria Blood Type A POSITIVE Antibody Screen Negative 01/14/18 14:56 WBC RBC Hgb Hct MCV MCH MCHC RDW Plt Count MPV Neut % (Auto) Lymph % (Auto) Franklin % (Auto) Eos % (Auto) Baso % (Auto) Neut # (Auto) Lymph # (Auto) [place] # (Auto) Eos # (Auto) Baso # (Auto) PT INR APTT Sodium Potassium Chloride Carbon Dioxide Anion Gap BUN Creatinine Est GFR ( Amer) Est GFR (Non-Af Amer) Random Glucose Calcium Total Bilirubin AST ALT Alkaline Phosphatase Troponin I < 0.0120 NT-Pro-B Natriuret Pep 84.0 Total Protein Albumin Globulin Albumin/Globulin Ratio Free T4 TSH 3rd Generation Urine Color Urine Clarity Urine pH Ur Specific [place] Urine Protein Urine Glucose (UA) Urine Ketones Urine Blood Urine Nitrate Urine Bilirubin Urine Urobilinogen Ur Leukocyte Esterase Urine WBC (Auto) Urine Bacteria Blood Type Antibody Screen Assessment & Plan (1) Preop exam for internal medicine Status: Acute Comment: Patient with known hx of hypothyroidism and hypertension. Comes in for persistent inguinal hernia pain over the right side. Surgery is planning for surgery intervention-->preoperative/intraoperative/post-operative per surgery. Surgery requesting for medical and cardiology clearance. Patient with known hx of hypertension controlled with medications, no prior cardiac hx to best of his knownledge, patient has bradycardia noted on EKG. Patient is pending echocardiogram. Patient is not diabetic and does not smoke. Pending echocardiogram and cardiology consult. Patient's TSH is elevated but improved compared to 6 days ago. Free T4 in normal range. (2) Inguinal hernia Status: Acute Comment: management per surgery. General surgery: Dr Celis. preoperative/ intraoperative/postoperative per surgery. pain management per surgery. DVT ppx per surgery (3) Bradycardia Status: Acute Comment: EKG 01/14/18: marked sinus bradycardia. Patient is asymptomatic. He denies lightheadedness, denies dizziness, denies nausea, denies syncopal episodes. Patient is pending cardiology and echocardiogram. Patient transferred to telemetry for further monitoring. Patient with known hx of hypothyroidism, which he is on Synthroid (4) HTN (hypertension) Status: Chronic Priority: Medium Comment: Will continue patient's anti-hypertensive medications. Ordered for echocardiogram (5) Hypothyroidism Status: Chronic Priority: Medium Comment: Will continue Synthroid. TSH is elevated but improved compared to last visit. Free T4 in normal range. On my exam: I feelt thyroid nodule over left thyroid gland, order for thryoid US and will order for endocrine consult for any further recommendation (6) Prophylactic measure Assessment and Plan: VTE ppx per surgery Status: Acute Attending/Attestation - Attestation I have personally seen and examined this patient.: Yes I have fully participated in the care of the patient.: Yes I have reviewed all pertinent clinical information: Yes
--- NOTE | 2018-01-14 14:03 | RAD ---
HISTORY: preop COMPARISON: Correlation made with prior CT scan abdomen pelvis 01/07/2018 which imaged both lung bases. TECHNIQUE: Chest PA and lateral FINDINGS: LUNGS: Biapical pleural thickening. No focal consolidation. PLEURA: No significant pleural effusion identified. No pneumothorax apparent. CARDIOVASCULAR: Normal. OSSEOUS STRUCTURES: No significant abnormalities. VISUALIZED UPPER ABDOMEN: Normal. OTHER FINDINGS: None. IMPRESSION: Biapical pleural thickening. No focal consolidation.
[2018-01-14 14:09] LABS: PROTHROMBIN TIME 10.7 SECONDS (9.7-12.2)
--- NOTE | 2018-01-15 00:53 | CON ---
DATE: ENDOCRINOLOGY CONSULTATION LOCATION: Room 665. HISTORY OF PRESENT ILLNESS: This is a 62-year-old male admitted with incarcerated hernia and referred now for endocrine evaluation of hypothyroidism as noted thereof. PAST MEDICAL HISTORY: History of hypothyroidism, currently on levothyroxine at 50 mcg once daily, history of hypertension, and also on lisinopril/hydrochlorothiazide. MEDICATIONS: As noted. FAMILY HISTORY: Positive for hypertension and heart disease. SOCIAL HISTORY: The patient has supportive family and lives with his son with ____ of alcohol. REVIEW OF SYSTEMS: Admits to episodic bouts of dizziness and lightheadedness, worse in the last few days prior to admission. His energy level has been variable with occasional fatigue and tiredness. His sleep patterns are also disrupted with occasional bouts of hypersomnolence. No chest pains, palpitations, or PND. His oral intake has been variable with dyspepsia and a bit of constipation, also admits to severe right inguinal area pain and tenderness. PHYSICAL EXAMINATION: GENERAL: This is an average built male in distress. VITAL SIGNS: With a blood pressure of 140/80, pulse of 60 beats per minute and regular, temperature 98, respirations 20, height is 6 feet 8 inches, and weight is 194 pounds. HEENT: Head, normocephalic. Eyes anicteric with pink conjunctivae. Funduscopy not possible at this time. Ears, nose, and throat, otherwise, normal. NECK: Supple. Thyroid gland is normal in size. No overt thyroid nodules noted. No cervical adenopathy palpable at this time. HEART: Adynamic precordium. S1 and S2 are slow and regular. LUNGS: Clear to auscultation. ABDOMEN: Flat, soft, with positive bowel sounds. EXTREMITIES: No peripheral edema. Pulses are +2 bilaterally. LABORATORY DATA: TSH is 6.30 with a free T4 of 1.18. Troponin is less than 0.01. Chemistries: BUN of 20, sodium 144, potassium 5, chloride 104, CO2 of 28, glucose 96, and creatinine 1. ASSESSMENT: This is a 62-year-old male with early hypothyroidism, most likely related to a subtherapeutic dose regimen and possibly has autoimmune thyroiditis with no overt palpable thyromegaly or nodules at this time. He is clinically euthyroid with biochemical evidence of very early hypothyroidism as mentioned. He is presenting here with incarcerated hernia, has severe inguinal pain as noted thereof. PLAN OF MANAGEMENT: We will be titrate his dose regimen to higher, so we will titrate his levothyroxine to 75 mcg once daily in the morning as ordered. We will obtain a comprehensive thyroid hormone profile as ordered. We will obtain serial chemistries and supplement accordingly as needed. He can be cleared for surgery from the endocrine view point, as we are dealing only with a very mild and early hypothyroidism related to a subtherapeutic regimen. We will follow. Elke Frausto MD
[2018-01-15 06:25] LABS: BASO % 1.1 % (0.0-2.0); EOS # 0.2 K/uL (0.0-0.7); EOS % 4.3 % (0.0-4.0); HEMOGLOBIN 14.8 g/dL (12.0-18.0); LYMPH # 1.3 K/uL (1.0-4.3); LYMPH % 34.7 % (20.0-40.0); MEAN CELL VOLUME 85.6 fL (80.0-94.0); MEAN CORPUSCULAR HEMOGLOBIN 28.6 pg (27.0-31.0); MEAN CORPUSCULAR HGB CONC 33.4 g/dL (33.0-37.0); MEAN PLATELET VOLUME 7.6 fL (7.2-11.7); MONO # 0.3 K/uL (0.0-0.8); MONO % 7.1 % (0.0-10.0); NEUT % 52.8 % (50.0-75.0); NRBC % 0.1 % (0.0-2.0); RBC 5.16 Mil/uL (4.40-5.90); RED CELL DISTRIBUTION WIDTH 14.3 % (11.5-14.5); WHITE BLOOD COUNT 3.8 K/uL (4.8-10.8)
[2018-01-15] MEDS ORDERED: Levothyroxine 75 MCG TAB PO SCH (06:30)
[2018-01-15] MEDS ORDERED: Levothyroxine 50 MCG TAB PO SCH (06:30)
[2018-01-15 06:47] LABS: ALB/GLOB RATIO 1.3 (1.0-2.1); ALBUMIN 3.8 g/dL (3.5-5.0); ALT/SGPT 46 U/L (21-72); AST/SGOT 27 U/L (17-59); BLOOD UREA NITROGEN 14 mg/dL (9-20); CALCIUM 9.5 mg/dl (8.6-10.4); GFR AFRICAN-AMERICAN > 60; GFR NON-AFRICAN AMERICAN > 60
--- NOTE | 2018-01-15 08:52 | US ---
Thyroid ultrasound History: Hypothyroidism. Comparison: None available. Technique: Real-time sonography was performed through the thyroid. Findings: Right lobe: 3.9 x 1.6 x 1.7 centimeters. Heterogeneous echotexture. Normal flow. Midpole hypoechoic cysts measuring 3 x 2 x 3 millimeters and 2 x 1 x 2 millimeters. Thyroid isthmus measures 2.5 millimeters. Heterogeneous echotexture. Normal flow. Left lobe: 3.9 x 1.0 x 1.4 centimeters. Heterogeneous echotexture. Normal flow. Upper pole hypoechoic cyst with a few internal echoes measuring 8 x 4 x 8 millimeters. Impression: Bilateral thyroid cysts; left greater than right. Interval followup may be helpful if clinically indicated.
[2018-01-15 09:29] LABS: T4 7.15 ug/dL (5.5-11.0)
--- NOTE | 2018-01-15 11:03 | CP.PCM.CON ---
History of Present Illness - History of Present Illness History of Present Illness: Patient with asymptomatic Bradycardia. No chest pain oe shortness of breath Past Patient History - Infectious Disease Hx of Infectious Diseases: None - Past Medical History & Family History Past Medical History?: Yes - Past Social History Smoking Status: Never Smoked - CARDIAC Hx Hypertension: Yes - PULMONARY Hx Respiratory Disorders: No - NEUROLOGICAL Hx Neurological Disorder: No - HEENT Hx HEENT Problems: No - RENAL Hx Chronic Kidney Disease: No - ENDOCRINE/METABOLIC Hx Hypothyroidism: Yes - HEMATOLOGICAL/ONCOLOGICAL Hx Blood Disorders: No - INTEGUMENTARY Hx Dermatological Problems: No - MUSCULOSKELETAL/RHEUMATOLOGICAL Hx Falls: No - GASTROINTESTINAL Hx Gastrointestinal Disorders: No - GENITOURINARY/GYNECOLOGICAL Hx Genitourinary Disorders: No - PSYCHIATRIC Hx Substance Use: No - SURGICAL HISTORY Hx Surgeries: Yes Hx Herniorrhaphy: Yes (01/07/18) - ANESTHESIA Hx Anesthesia: Yes Hx Anesthesia Reactions: No Meds Allergies/Adverse Reactions: Allergies Allergy/AdvReac Type Severity Reaction Status Date / Time Penicillins Allergy ANAPHYLAXIS Verified 01/14/18 11:15 - Medications Medications: Current Medications Hydrochlorothiazide (Microzide) 12.5 mg PO DAILY [facility] Last Admin: 01/15/18 10:12 Dose: 12.5 mg Levothyroxine Sodium (Synthroid) 75 mcg PO DAILY@0630 [facility] Last Admin: 01/15/18 06:39 Dose: 75 mcg Lisinopril (Zestril) 10 mg PO DAILY [facility] Last Admin: 01/15/18 10:12 Dose: 10 mg Physical Exam - Head Exam Head Exam: NORMOCEPHALIC - Neck Exam Neck exam: Positive for: Normal Inspection - Respiratory Exam Respiratory Exam: NORMAL BREATHING PATTERN - Cardiovascular Exam Cardiovascular Exam: REGULAR RHYTHM - Extremities Exam Extremities exam: Positive for: normal inspection - Neurological Exam Neurological exam: Oriented x3 Results - Vital Signs Recent Vital Signs: Last Vital Signs Temp 97.9 F 01/15/18 07:40 Pulse 49 L 01/15/18 07:40 Resp 20 01/15/18 07:40 BP 119/70 01/15/18 07:40 Pulse Ox 98 01/15/18 07:40 - Labs Result Diagrams: 01/15/18 06:15 01/15/18 06:15 Labs: Laboratory Results - last 24 hr 01/14/18 01/14/18 01/14/18 12:44 12:44 13:00 WBC 5.2 RBC 5.47 Hgb 16.1 Hct 47.5 MCV 86.8 MCH 29.5 MCHC 34.0 RDW 14.5 Plt Count 273 MPV 7.8 Neut % (Auto) 67.5 Lymph % (Auto) 22.9 [place] % (Auto) 6.5 Eos % (Auto) 1.7 Baso % (Auto) 1.4 Neut # (Auto) 3.5 Lymph # (Auto) 1.2 [place] # (Auto) 0.3 Eos # (Auto) 0.1 Baso # (Auto) 0.1 PT INR APTT Sodium 144 Potassium 5.0 Chloride 104 Carbon Dioxide 28 Anion Gap 18 BUN 20 Creatinine 1.0 Est GFR ( Amer) > 60 Est GFR (Non-Af Amer) > 60 Random Glucose 96 Calcium 9.9 Total Bilirubin 1.2 AST 41 ALT 57 Alkaline Phosphatase 48 Troponin I NT-Pro-B Natriuret Pep Total Protein 8.1 Albumin 4.5 Globulin 3.6 Albumin/Globulin Ratio 1.2 Free T4 Thyroxine (T4) TSH 3rd Generation 6.30 H Cortisol AM Sample Urine Color Yellow Urine Clarity Clear Urine pH 5.0 Ur Specific [place] 1.018 Urine Protein Negative Urine Glucose (UA) Normal Urine Ketones Negative Urine Blood Negative Urine Nitrate Negative Urine Bilirubin Negative Urine Urobilinogen Normal Ur Leukocyte Esterase Neg Urine WBC (Auto) < 1 Urine Bacteria Rare Blood Type Antibody Screen 01/14/18 01/14/18 01/14/18 13:39 13:39 14:56 WBC RBC Hgb Hct MCV MCH MCHC RDW Plt Count MPV Neut % (Auto) Lymph % (Auto) [place] % (Auto) Eos % (Auto) Baso % (Auto) Neut # (Auto) Lymph # (Auto) [place] # (Auto) Eos # (Auto) Baso # (Auto) PT 10.7 INR 1.0 APTT 32 Sodium Potassium Chloride Carbon Dioxide Anion Gap BUN Creatinine Est GFR ( Amer) Est GFR (Non-Af Amer) Random Glucose Calcium Total Bilirubin AST ALT Alkaline Phosphatase Troponin I NT-Pro-B Natriuret Pep Total Protein Albumin Globulin Albumin/Globulin Ratio Free T4 1.18 Thyroxine (T4) TSH 3rd Generation Cortisol AM Sample Urine Color Urine Clarity Urine pH Ur Specific [place] Urine Protein Urine Glucose (UA) Urine Ketones Urine Blood Urine Nitrate Urine Bilirubin Urine Urobilinogen Ur Leukocyte Esterase Urine WBC (Auto) Urine Bacteria Blood Type A POSITIVE Antibody Screen Negative 01/14/18 01/15/18 01/15/18 14:56 06:15 06:15 WBC 3.8 L RBC 5.16 Hgb 14.8 Hct 44.2 MCV 85.6 MCH 28.6 MCHC 33.4 RDW 14.3 Plt Count 253 MPV 7.6 Neut % (Auto) 52.8 Lymph % (Auto) 34.7 [place] % (Auto) 7.1 Eos % (Auto) 4.3 H Baso % (Auto) 1.1 Neut # (Auto) 2.0 Lymph # (Auto) 1.3 [place] # (Auto) 0.3 Eos # (Auto) 0.2 Baso # (Auto) 0.0 PT INR APTT Sodium 142 Potassium 4.6 Chloride 105 Carbon Dioxide 28 Anion Gap 13 BUN 14 Creatinine 1.0 Est GFR ( Amer) > 60 Est GFR (Non-Af Amer) > 60 Random Glucose 90 Calcium 9.5 Total Bilirubin 1.0 AST 27 ALT 46 Alkaline Phosphatase 43 Troponin I < 0.0120 NT-Pro-B Natriuret Pep 84.0 Total Protein 6.7 Albumin 3.8 Globulin 2.8 Albumin/Globulin Ratio 1.3 Free T4 Thyroxine (T4) 7.15 TSH 3rd Generation 11.30 H Cortisol AM Sample Urine Color Urine Clarity Urine pH Ur Specific [place] Urine Protein Urine Glucose (UA) Urine Ketones Urine Blood Urine Nitrate Urine Bilirubin Urine Urobilinogen Ur Leukocyte Esterase Urine WBC (Auto) Urine Bacteria Blood Type Antibody Screen 01/15/18 06:15 WBC RBC Hgb Hct MCV MCH MCHC RDW Plt Count MPV Neut % (Auto) Lymph % (Auto) [place] % (Auto) Eos % (Auto) Baso % (Auto) Neut # (Auto) Lymph # (Auto) [place] # (Auto) Eos # (Auto) Baso # (Auto) PT INR APTT Sodium Potassium Chloride Carbon Dioxide Anion Gap BUN Creatinine Est GFR ( Amer) Est GFR (Non-Af Amer) Random Glucose Calcium Total Bilirubin AST ALT Alkaline Phosphatase Troponin I NT-Pro-B Natriuret Pep Total Protein Albumin Globulin Albumin/Globulin Ratio Free T4 Thyroxine (T4) TSH 3rd Generation Cortisol AM Sample 15.4 Urine Color Urine Clarity Urine pH Ur Specific [place] Urine Protein Urine Glucose (UA) Urine Ketones Urine Blood Urine Nitrate Urine Bilirubin Urine Urobilinogen Ur Leukocyte Esterase Urine WBC (Auto) Urine Bacteria Blood Type Antibody Screen Assessment & Plan (1) Bradycardia Assessment and Plan: Asymptomatic bradycardia. No history of cardiac disease. Increase in HR when ambulating suggesting Chronotropic competency. No SA or AV node blocking agents. May proceed with planned procedure with acceptable risk. Post -op monitoring with EKG and cardiac markers Q8 hoursX2. Status: Acute
--- NOTE | 2018-01-15 12:00 | CP.PCM.PN ---
<Beba Pittman - Last Filed: 01/15/18 11:54> Subjective - Date & Time of Evaluation Date of Evaluation: 01/15/18 Time of Evaluation: 09:00 - Subjective Subjective: Medicine Progress Note for Hospitalist Service- Dr. Sutton Patient was seen and examined at bedside. Patient reports he had immense inguinal pain last night around 3 am. He admitted to being hungry and wanted to know when the surgery was going to be performed. Denied fever, chills, shortness of breath, chest pain, abdominal pain, n/v/d/c, or urinary symptoms. Objective - Vital Signs/Intake and Output Vital Signs (last 24 hours): Temp Pulse Resp BP Pulse Ox 97.9 F 49 L 20 119/70 98 01/15/18 07:40 01/15/18 07:40 01/15/18 07:40 01/15/18 07:40 01/15/18 07:40 Intake and Output: 01/15/18 01/15/18 06:59 18:59 Intake Total 900 Output Total 950 Balance -50 - Medications Medications: Current Medications Hydrochlorothiazide (Microzide) 12.5 mg PO DAILY [facility] Last Admin: 01/15/18 10:12 Dose: 12.5 mg Levothyroxine Sodium (Synthroid) 75 mcg PO DAILY@0630 [facility] Last Admin: 01/15/18 06:39 Dose: 75 mcg Lisinopril (Zestril) 10 mg PO DAILY [facility] Last Admin: 01/15/18 10:12 Dose: 10 mg - Labs Labs: 01/15/18 06:15 01/15/18 06:15 PT 10.7 SECONDS (9.7-12.2) 01/14/18 13:39 INR 1.0 01/14/18 13:39 APTT 32 SECONDS (21-34) 01/14/18 13:39 - Constitutional Appears: No Acute Distress - Head Exam Head Exam: NORMAL INSPECTION, NORMOCEPHALIC - Eye Exam Eye Exam: EOMI, Normal appearance, PERRL Pupil Exam: NORMAL ACCOMODATION - ENT Exam ENT Exam: Mucous Membranes Moist, Normal Exam - Neck Exam Neck Exam: Normal Inspection - Respiratory Exam Respiratory Exam: Clear to Ausculation Bilateral - Cardiovascular Exam Cardiovascular Exam: Bradycardia - GI/Abdominal Exam GI & Abdominal Exam: Soft, Tenderness, Normal Bowel Sounds. absent: Distended Additional comments: TTP right lower quadrant and inguinal area. - Rectal Exam Rectal Exam: Deferred - Extremities Exam Extremities Exam: Normal Inspection. absent: Pedal Edema, Tenderness - Back Exam Back Exam: NORMAL INSPECTION - Neurological Exam Neurological Exam: Alert, Awake, Oriented x3 - Psychiatric Exam Psychiatric exam: Normal Affect, Normal Mood - Skin Skin Exam: Dry, Intact, Normal Color, Warm Assessment and Plan - Assessment and Plan (Free Text) Plan: Preop exam for internal medicine Patient with known hx of hypothyroidism and hypertension. Comes in for persistent inguinal hernia pain over the right side. Surgery is planning for surgery intervention-->preoperative/intraoperative/post-operative per surgery. Surgery requesting for medical and cardiology clearance. Patient with known hx of hypertension controlled with medications, no prior cardiac hx to best of his knowledge, patient has bradycardia noted on EKG. Patient is not diabetic and does not smoke. Inguinal hernia management per surgery. General surgery: Dr Celis. preoperative/ intraoperative/postoperative per surgery. pain management per surgery. DVT ppx per surgery Bradycardia EKG 01/14/18: marked sinus bradycardia. Patient is asymptomatic. He denies lightheadedness, denies dizziness, denies nausea, denies syncopal episodes. Patient is pending cardiology and echocardiogram. Patient transferred to telemetry for further monitoring. Patient with known hx of hypothyroidism, which he is on Synthroid As per cardio patient is cleared for surgery, will need to remain on tele post op, alone with serial ROMIs, EKGs. HTN (hypertension) Will continue patient's anti-hypertensive medications. Pending official echocardiogram results Hypothyroidism Will continue Synthroid. TSH is elevated but improved compared to last visit. Free T4 in normal range. On my exam: I felt thyroid nodule over left thyroid gland, order for thryoid US and will order for endocrine consult for any further recommendation Endo increased synthroid to 75mcg daily, thyroid US showed bilateral thyroid cysts L>R no nodules noted. Prophylactic measure VTE ppx per surgery DW Beba Sahu DO, PGY-1 <Usha Sutton V - Last Filed: 01/15/18 17:49> Objective - Vital Signs/Intake and Output Vital Signs (last 24 hours): Temp Pulse Resp BP Pulse Ox 98.0 F 50 L 18 111/69 100 01/15/18 15:00 01/15/18 16:53 01/15/18 15:00 01/15/18 15:00 01/15/18 15:00 Intake and Output: 01/15/18 01/15/18 06:59 18:59 Intake Total 900 760 Output Total 950 Balance -50 760 - Medications Medications: Current Medications Hydrochlorothiazide (Microzide) 12.5 mg PO DAILY [facility] Last Admin: 01/15/18 10:12 Dose: 12.5 mg Levothyroxine Sodium (Synthroid) 100 mcg PO DAILY@0630 [facility] Lisinopril (Zestril) 10 mg PO DAILY [facility] Last Admin: 01/15/18 10:12 Dose: 10 mg - Labs Labs: 01/15/18 06:15 01/15/18 06:15 PT 10.7 SECONDS (9.7-12.2) 01/14/18 13:39 INR 1.0 01/14/18 13:39 APTT 32 SECONDS (21-34) 01/14/18 13:39 Assessment and Plan (1) Preop exam for internal medicine Status: Acute (2) Inguinal hernia Status: Acute (3) Bradycardia Status: Acute (4) HTN (hypertension) Status: Chronic (5) Hypothyroidism Status: Chronic (6) Prophylactic measure Status: Acute Attending/Attestation - Attestation I have personally seen and examined this patient.: Yes I have fully participated in the care of the patient.: Yes I have reviewed all pertinent clinical information, including history, physical exam and plan: Yes Notes (Text): medicine on consult Patient seen, examined and case discussed with medical records manager. Patient seen this morning with his girlfriend at bedside. Patient reporting 3AM he had pain over his right groin. patient denies headache, denies chest pain, denies shortness of breathe, denies lightheaded, denies abdominal pain, denies nausea, denies vomitting, and has not had bowel movement this morning. Per endo, patient may proceed with procedure. Per cardio, patient may proceed with procedure. Recommend for EKG and cardiac enzymes post op. Patient's hypertensive is controlled. patient is low-medium risk individual for surgical intervention. Surgery and anesthesia to discuss risks and benefits of procedure respectively. Assessment/Plan (1) Preop exam for internal medicine Status: Acute Comment: Patient with known hx of hypothyroidism and hypertension. Comes in for persistent inguinal hernia pain over the right side. Surgery is planning for surgery intervention-->preoperative/intraoperative/post- operative per surgery. Surgery requesting for medical and cardiology clearance. Per endo, patient may proceed with procedure. Per cardio, patient may proceed with procedure. Recommend for EKG and cardiac enzymes post op. Patient's hypertensive is controlled. patient is low-medium risk individual for surgical intervention. Surgery and anesthesia to discuss risks and benefits of procedure respectively. (2) Inguinal hernia Status: Acute Comment: management per surgery. General surgery: Dr Celis. preoperative/ intraoperative/postoperative per surgery. pain management per surgery. DVT ppx per surgery (3) Bradycardia Status: Acute Comment: EKG 01/14/18: marked sinus bradycardia. Patient is asymptomatic. He denies lightheadedness, denies dizziness, denies nausea, denies syncopal episodes. Patient transferred to telemetry for further monitoring. Patient with known hx of hypothyroidism, which he is on Synthroid Per cardiology, may proceed with procedure (4) HTN (hypertension) Status: Chronic Priority: Medium Comment: HCTZ 12.5mg PO daily Lisinopril 10mg PO daily monitor vital signs (5) Hypothyroidism Status: Chronic Priority: Medium Comment: Endocrinology (Dr. Frausto) on board-->help appreciated Synthroid 100mcg POqAM thryoid US (01/14/18): bilateral thryoid cysts. left greater than right (6) Prophylactic measure Assessment and Plan: VTE ppx per surgery
--- NOTE | 2018-01-15 12:53 | CARD ---
APPROVED REPORT EKG Measurement Heart [id number] <Conclusion> Marked sinus bradycardia Abnormal ECG
--- NOTE | 2018-01-15 13:08 | CARD ---
APPROVED REPORT EXAM: Two-dimensional and M-mode echocardiogram with Doppler and color Doppler. Other Information Quality : GoodRhythm : Bradycardia RISK FACTORS Hypertension 2D DIMENSIONS IVSd1.1 (0.7-1.1cm)LVDd5.3 (3.9-5.9cm) PWd0.9 (0.7-1.1cm)LVDs3.1 (2.5-4.0cm) FS (%) 42.6 %LVEF (%)73.3 (>50%) M-Mode DIMENSIONS RVDd1.29 (2.1-3.2cm)Left Atrium (MM)4.09 (2.5-4.0cm) IVSd1.48 (0.7-1.1cm)Aortic Root3.49 (2.2-3.7cm) LVDd5.75 (4.0-5.6cm)Aortic Cusp Exc.2.47 (1.5-2.0cm) PWd1.14 (0.7-1.1cm)FS (%) 51 % LVDs2.80 (2.0-3.8cm)LVEF (%)82 (>50%) Mitral Valve MV E Mjhomhfw56.7cm/sMV A Esokkjpj59.4cm/sE/A ratio1.4 TDI E/Lateral E'0.0E/Medial E'0.0 Tricuspid Valve TR Peak [id number]/sTR Peak [id number] LEFT VENTRICLE The left ventricle is normal size. There is borderline concentric left ventricular hypertrophy. Left ventricle systolic function is normal. The Ejection Fraction is 60-65%. There is normal LV segmental wall motion. The left ventricular diastolic function is normal. There is no ventricular septal defect visualized. RIGHT VENTRICLE The right ventricle is normal size. The right ventricular systolic function is normal. ATRIA The left atrium is mildly dilated. The right atrium size is normal. AORTIC VALVE The aortic valve is mildly sclerotic. The aortic valve is tri-cuspid. No aortic regurgitation is present. There is no aortic valvular stenosis. MITRAL VALVE The mitral valve is normal in structure. There is no evidence of mitral valve prolapse. Mitral regurgitation is trace. TRICUSPID VALVE The tricuspid valve is normal in structure. There is trace tricuspid regurgitation. There is no pulmonary hypertension. PULMONIC VALVE The pulmonic valve is not well visualized. There is no pulmonic valvular regurgitation. GREAT VESSELS The aortic root is normal in size. The ascending aorta is normal in size. The IVC is normal in size and collapses >50% with inspiration. PERICARDIAL EFFUSION There is no pericardial effusion. <Conclusion> There is borderline concentric left ventricular hypertrophy. Left ventricle systolic function is normal. The Ejection Fraction is 60-65%. Mitral regurgitation is trace.
[2018-01-16] MEDS ORDERED: Levothyroxine 100 MCG TAB PO SCH (06:30)
[2018-01-16 06:46] LABS: BASO # 0.1 K/uL (0.0-0.2); BASO % 1.4 % (0.0-2.0); EOS # 0.1 K/uL (0.0-0.7); EOS % 2.9 % (0.0-4.0); LYMPH # 1.3 K/uL (1.0-4.3); LYMPH % 31.6 % (20.0-40.0); MEAN CELL VOLUME 85.2 fL (80.0-94.0); MEAN CORPUSCULAR HGB CONC 34.1 g/dL (33.0-37.0); MEAN PLATELET VOLUME 8.1 fL (7.2-11.7); MONO # 0.3 K/uL (0.0-0.8); MONO % 6.3 % (0.0-10.0); NEUT # 2.4 K/uL (1.8-7.0); NEUT % 57.8 % (50.0-75.0); NRBC % 0.1 % (0.0-2.0); RBC 5.17 Mil/uL (4.40-5.90); RED CELL DISTRIBUTION WIDTH 14.2 % (11.5-14.5); WHITE BLOOD COUNT 4.2 K/uL (4.8-10.8)
[2018-01-16 07:47] LABS: ALB/GLOB RATIO 1.2 (1.0-2.1); ALBUMIN 3.8 g/dL (3.5-5.0); ALT/SGPT 52 U/L (21-72); AST/SGOT 35 U/L (17-59); BLOOD UREA NITROGEN 18 mg/dL (9-20); CALCIUM 9.7 mg/dl (8.6-10.4); GFR AFRICAN-AMERICAN > 60; GFR NON-AFRICAN AMERICAN > 60
--- NOTE | 2018-01-16 08:49 | CP.PCM.PN ---
<Beba Pittman - Last Filed: 01/16/18 08:44> Subjective - Date & Time of Evaluation Date of Evaluation: 01/16/18 Time of Evaluation: 07:00 - Subjective Subjective: Medicine Progress Note for Hospitalist Service- Dr. Sutton Patient was seen and examined at bedside. Patient is for OR today 11am with Dr. Box. Admits to inguinal pain. Denied fever, chills, shortness of breath, chest pain, abdominal pain, n/v/d/c, or urinary symptoms. Objective - Vital Signs/Intake and Output Vital Signs (last 24 hours): Temp Pulse Resp BP Pulse Ox 97.6 F 46 L 20 97/55 L 98 01/16/18 07:45 01/16/18 07:45 01/16/18 07:45 01/16/18 07:45 01/16/18 07:45 Intake and Output: 01/16/18 01/16/18 06:59 18:59 Output Total 1050 Balance -1050 - Medications Medications: Current Medications Hydrochlorothiazide (Microzide) 12.5 mg PO DAILY [facility] Last Admin: 01/15/18 10:12 Dose: 12.5 mg Levothyroxine Sodium (Synthroid) 100 mcg PO DAILY@0630 [facility] Last Admin: 01/16/18 05:54 Dose: 100 mcg Lisinopril (Zestril) 10 mg PO DAILY [facility] Last Admin: 01/15/18 10:12 Dose: 10 mg - Labs Labs: 01/16/18 06:36 01/16/18 06:36 PT 10.7 SECONDS (9.7-12.2) 01/14/18 13:39 INR 1.0 01/14/18 13:39 APTT 32 SECONDS (21-34) 01/14/18 13:39 - Additional Findings Additional findings: - Constitutional Appears: No Acute Distress - Head Exam Head Exam: NORMAL INSPECTION, NORMOCEPHALIC - Eye Exam Eye Exam: EOMI, Normal appearance, PERRL Pupil Exam: NORMAL ACCOMODATION - ENT Exam ENT Exam: Mucous Membranes Moist, Normal Exam - Neck Exam Neck Exam: Normal Inspection - Respiratory Exam Respiratory Exam: Clear to Ausculation Bilateral - Cardiovascular Exam Cardiovascular Exam: Bradycardia - GI/Abdominal Exam GI & Abdominal Exam: Soft, Tenderness, Normal Bowel Sounds. absent: Distended Additional comments: TTP right lower quadrant and inguinal area. - Rectal Exam Rectal Exam: Deferred - Extremities Exam Extremities Exam: Normal Inspection. absent: Pedal Edema, Tenderness - Back Exam Back Exam: NORMAL INSPECTION - Neurological Exam Neurological Exam: Alert, Awake, Oriented x3 - Psychiatric Exam Psychiatric exam: Normal Affect, Normal Mood - Skin Skin Exam: Dry, Intact, Normal Color, Warm Assessment and Plan - Assessment and Plan (Free Text) Plan: Preop exam for internal medicine Patient with known hx of hypothyroidism and hypertension. Comes in for persistent inguinal hernia pain over the right side. Surgery is planning for surgery intervention-->preoperative/intraoperative/post-operative per surgery. Surgery requesting for medical and cardiology clearance. Patient with known hx of hypertension controlled with medications, no prior cardiac hx to best of his knowledge, patient has bradycardia noted on EKG. Patient is not diabetic and does not smoke. Per endo, patient may proceed with procedure. Per cardio, patient may proceed with procedure. Recommend for EKG and cardiac enzymes post op. Patient's hypertensive is controlled. patient is low-medium risk individual for surgical intervention. Surgery and anesthesia to discuss risks and benefits of procedure respectively Inguinal hernia management per surgery. General surgery: Dr Celis. preoperative/ intraoperative/postoperative per surgery. pain management per surgery. DVT ppx per surgery Scheduled for OR today at 11am. Bradycardia EKG 01/14/18: marked sinus bradycardia. Patient is asymptomatic. He denies lightheadedness, denies dizziness, denies nausea, denies syncopal episodes. Patient is pending cardiology and echocardiogram. Patient transferred to telemetry for further monitoring. Patient with known hx of hypothyroidism, which he is on Synthroid As per cardio patient is cleared for surgery, will need to remain on tele post op, alone with serial ROMIs, EKGs. HTN (hypertension) Will continue patient's anti-hypertensive medications. Echocardiogram: mild LVH, EF >65% Hypothyroidism Will continue Synthroid. TSH is elevated but improved compared to last visit. Free T4 in normal range. On my exam: I felt thyroid nodule over left thyroid gland, order for thryoid US and will order for endocrine consult for any further recommendation Endo increased synthroid to 100mcg daily, thyroid US showed bilateral thyroid cysts L>R no nodules noted. Prophylactic measure VTE ppx per surgery Discharge plans as per primary team. DW Beba Sahu DO, PGY-1 <LesleyUsha V - Last Filed: 01/17/18 07:25> Objective - Vital Signs/Intake and Output Vital Signs (last 24 hours): Temp Pulse Resp BP Pulse Ox 97 F L 48 L 15 124/83 99 01/16/18 14:30 01/16/18 14:30 01/16/18 14:30 01/16/18 14:30 01/16/18 14:30 - Labs Labs: 01/16/18 06:36 01/16/18 06:36 PT 10.7 SECONDS (9.7-12.2) 01/14/18 13:39 INR 1.0 01/14/18 13:39 APTT 32 SECONDS (21-34) 01/14/18 13:39 Assessment and Plan (1) Preop exam for internal medicine Status: Acute (2) Inguinal hernia Status: Acute (3) Bradycardia Status: Acute (4) HTN (hypertension) Status: Chronic (5) Hypothyroidism Status: Chronic (6) Prophylactic measure Status: Acute Attending/Attestation - Attestation I have personally seen and examined this patient.: Yes I have fully participated in the care of the patient.: Yes I have reviewed all pertinent clinical information, including history, physical exam and plan: Yes Notes (Text): This is late computer entry for 01/16/18. Medicine Consult Patient seen, examined and case discussed with medical advisor. Patient went to the OR this morning. I saw the patient this afternoon. Patient sitting up right eating food with his girlfriend and friend at bedside. Patient reports mild pain over right side of groin. Per surgery, patient is for discharge today post-procedure. Discharge post-operative per surgery. Patient given prescriptions for his blood pressure medications and new Sythroid 100mcg PO AM (30 tabs). Patient does not have a primary care doctor, recommended to establish care with [facility], [address] [place], [place] [address]; [phone]. Assessment/Plan (1) Preop exam for internal medicine Status: Acute Comment: Patient with known hx of hypothyroidism and hypertension. Comes in for persistent inguinal hernia pain over the right side. Surgery is planning for surgery intervention-->preoperative/intraoperative/post- operative per surgery. Surgery requesting for medical and cardiology clearance. Per endo, patient may proceed with procedure. Per cardio, patient may proceed with procedure. Recommend for EKG and cardiac enzymes post op. Patient's hypertensive is controlled. patient is low-medium risk individual for surgical intervention. Surgery and anesthesia to discuss risks and benefits of procedure respectively. Patient went to OR today. (2) Inguinal hernia Status: Acute Comment: management per surgery. General surgery: Dr Celis. preoperative/intraoperative/postoperative per surgery. pain management per surgery. DVT ppx per surgery (3) Bradycardia Status: Acute Comment: EKG 01/14/18: marked sinus bradycardia. Patient is asymptomatic. He denies lightheadedness, denies dizziness, denies nausea, denies syncopal episodes. Patient transferred to telemetry for further monitoring. Patient with known hx of hypothyroidism, which he is on Synthroid Per cardiology, may proceed with procedure (4) HTN (hypertension) Status: Chronic Priority: Medium Comment: HCTZ 12.5mg PO daily Lisinopril 10mg PO daily monitor vital signs (5) Hypothyroidism Status: Chronic Priority: Medium Comment: Endocrinology (Dr. Frausto) on board-->help appreciated Synthroid 100mcg POqAM thryoid US (01/14/18): bilateral thryoid cysts. left greater than right (6) Prophylactic measure Assessment and Plan: VTE ppx per surgery
[2018-01-16] MEDS ORDERED: Propofol 10 mg/ml Inj (20 ML) ONE (12:19)
[2018-01-16] MEDS ORDERED: Rocuronium 10 mg/ml (5 ml) ONE (12:23)
[2018-01-16] MEDS ORDERED: Bupivacaine HCl 0.25% PF (30 ml) Inj ONE (12:46)
[2018-01-16] MEDS ORDERED: Doxycycline 100 mg Inj ONE (12:47)
[2018-01-16] MEDS ORDERED: Lidocaine/Epinephrine 1% 1:100000 10 ML IJ ONE (12:47)
[2018-01-16] MEDS ORDERED: Neostigmine Methylsulfate 3mg/3ml Syringe IV ONE (13:18)
[2018-01-16] MEDS ORDERED: HYDROmorphone 0.5 mg/0.5 ml ISec IVP PRN (13:33)
[2018-01-16] MEDS ORDERED: Oxycodone/Acetaminophen 5/325 mg Tab PO PRN (13:47)
[2018-01-16 15:03] VITALS: RESP 15
[2018-01-16 18:13] VITALS: BP 124/83; PULSE 48; TEMP 97; O2SAT 99
--- NOTE | 2018-01-17 01:25 | OP ---
PROCEDURE DATE: 01/16/2018 PREOPERATIVE DIAGNOSIS: Right inguinal hernia. POSTOPERATIVE DIAGNOSIS: Right direct inguinal hernia. PROCEDURE PERFORMED: Right direct inguinal hernia repair. SURGEON: Mike Box MD METAL SORTER: Dr. Salazar. TYPE OF ANESTHESIA: General endotracheal. ESTIMATED BLOOD LOSS: 20 mL. POSTOPERATIVE CONDITION: Stable. INDICATIONS OF SURGERY: This is a 62-year-old male, admitted with incarcerated hernia, now will undergo operative repair. GROSS FINDINGS: The patient had a partial incarcerated direct inguinal hernia. There were no other abnormal findings. DESCRIPTION OF PROCEDURE: The patient was taken to the operative room, general anesthesia was administered. The abdomen and right lower quadrant and groin area were prepped and draped. Standard right inguinal incision was made, and external oblique aponeurosis was opened. The spermatic cord was looped with a Rudolph drain. The direct hernia was identified, dissected at its base, and inverted. A medium-sized ProLoop plug was inserted into the hernia defect and sutured in place with interrupted 2-0 Prolene. The wound was irrigated and closed in layers with Monocryl and skin clips. The patient tolerated the procedure well. Returned to recovery room in stable condition. Mike Box MD
== END 2018-01-16 18:54 | disposition home or self-care (01) | DRG 162 ==
LOC: C.ER 10:29 → C.9E 12:31 → C.3T 14:53 → C.6T 22:01
PROVIDERS: ADMIT Surgery; ATTEND Surgery
PROC: 0YU50JZ Supplement Right Inguinal Region with Synthetic Substitute, Open Approach (ICD-10-PCS; principal; 2018-01-16 12:00)
DX: K40.30 Unilateral inguinal hernia, with obstruction, without gangrene, not specified as recurrent (principal); I10 Essential (primary) hypertension; E03.9 Hypothyroidism, unspecified; R00.1 Bradycardia, unspecified

== ENCOUNTER 2018-02-04 15:06 | Emergency (ER) | payer OTHER ==
[2018-02-04 15:18] VITALS: BP 117/83; PULSE 57; RESP 16; TEMP 97.9; O2SAT 99
[2018-02-04] MEDS ORDERED: Sodium Chloride 0.9% 1,000 ML IV ONE (16:19)
--- NOTE | 2018-02-04 19:55 | C.PDOC ---
History Of Present Illness 63yo male, presents to ED with complaints of right leg pain after he had a right inguinal hernia surgery 2 weeks ago. Patient states the pain is sharp and he has been taking Tramadol with no relief o pain. He denies any fever, chills, nausea, vomiting, or blood in stool. Patient denies any drainage form the incision site. He reports he has a scheduled follow up appointment with his surgeon in 2 days. Patient offers no other medical complaints. Time Seen by Provider: 02/04/18 15:40 Chief Complaint (Nursing): Lower Extremity Problem/Injury History Per: Patient History/Exam Limitations: no limitations Onset/Duration Of Symptoms: Days Current Symptoms Are (Timing): Still Present Additional History Per: Patient Past Medical History Reviewed: Historical Data, Nursing Documentation, Vital Signs Vital Signs: Last Vital Signs Temp 97.9 F 02/04/18 15:15 Pulse 57 L 02/04/18 15:15 Resp 16 02/04/18 15:15 BP 117/83 02/04/18 15:15 Pulse Ox 99 02/04/18 19:59 - Medical History PMH: HTN, Hypothyroidism Denies: Atrial Fibrillation, Cardia Arrhythmia, CHF, Hypercholesterolemia, Hyperthyroidism, Mitral Valve Prolapse, Peripheral Edema, Chronic Kidney Disease Surgical History: Hernia Repair Denies: Pacemaker - [facility] Procedures SUPPLEMENT R INGUINAL REGION WITH SYNTH SUB, OPEN APPROACH (01/14/18) Family History: States: No Known Family Hx - Social History Hx Tobacco Use: No Hx Alcohol Use: No Hx Substance Use: No - Immunization History Hx Tetanus Toxoid Vaccination: No Hx Influenza Vaccination: No Hx Pneumococcal Vaccination: No Review Of Systems Except As Marked, All Systems Reviewed And Found Negative. Constitutional: Negative for: Fever, Chills Cardiovascular: Negative for: Chest Pain Respiratory: Negative for: Shortness of Breath Gastrointestinal: Negative for: Nausea, Vomiting, Abdominal Pain, Hematochezia, Hematemesis Musculoskeletal: Positive for: Leg Pain (right) Physical Exam - Physical Exam Appears: Non-toxic, No Acute Distress Skin: Normal Color, Warm, Dry Head: Normacephalic Eye(s): bilateral: Normal Inspection Oral Mucosa: Moist Neck: Normal ROM, Supple Chest: Symmetrical Cardiovascular: Rhythm Regular Respiratory: Normal Breath Sounds Gastrointestinal/Abdominal: Soft, No Tenderness, Other (well healed surgical scar to right inguinal area) Extremity: Normal ROM Neurological/Psych: Oriented x3 ED Course And Treatment O2 Sat by Pulse Oximetry: 99 (RA) Pulse Ox Interpretation: Normal Medical Decision Making Medical Decision Making: Progress: -- Labs reviewed with no clinically significant abnormalities. Patient is stable for discharge home, instructed to follow up with Dr. Box as scheduled. Disposition - Disposition Referrals: Mike Box MD [Staff Provider] - Disposition: HOME/ ROUTINE Disposition Time: 15:40 Condition: GOOD Additional Instructions: Thank you for letting us take care of you today. The emergency medical care you received today was directed at your acute symptoms. If you were prescribed any medication, please fill it and take as directed. It may take several days for your symptoms to resolve. Return to the Emergency Department if your symptoms worsen, do not improve, or if you have any other problems. Please contact your doctor or call one of the physicians/clinics you have been referred to that are listed on the Patient Visit Information form that is included in your discharge packet. Bring any paperwork you were given at discharge with you along with any medications you are taking to your follow up visit. Our treatment cannot replace ongoing medical care by a primary care provider (PCP) outside of the emergency department. Thank you for allowing the [email or web address] team to be part of your care today. Follow up with Dr. Box in 1-2 days for re-evaluation and further management. Prescriptions: Gabapentin [Neurontin] 300 mg PO DAILY #7 cap Ibuprofen [Motrin] 600 mg PO Q6 PRN #20 tab PRN Reason: Pain, Moderate (4-7) Instructions: Postoperative Pain (DC) Forms: [employer] (Chinese) - Clinical Impression Clinical Impression: Neuropathy - Scribe Statement The provider has reviewed the documentation as recorded by the Scribe (Amisha Pro) Provider Attestation: All medical record entries made by the Scribe were at my direction and personally dictated by me. I have reviewed the chart and agree that the record accurately reflects my personal performance of the history, physical exam, medical decision making, and the department course for this patient. I have also personally directed, reviewed, and agree with the discharge instructions and disposition.
== END 2018-02-04 15:55 | disposition home or self-care (01) ==
LOC: C.ER 15:06
DX: G62.9 Polyneuropathy, unspecified (principal)

== ENCOUNTER 2018-02-06 11:13 | Emergency (ER) | payer OTHER ==
--- NOTE | 2018-02-06 11:34 | C.PDOC ---
History Of Present Illness Patient is a 63 y/o male who presents to the ED by referral from Dr Ward for evaluation of persistent pain to anterior right thigh. Patient is s/p right inguinal hernia repair 2 weeks ago and was seen in ED on 02/04 for neuropathy; patient discharged with neurontin and motrin. Today, patient notes pain is not at incision site and worsens with movement; denies any fever, swelling, rash, chest pain, or SOB. No other physical complaints at this time. Time Seen by Provider: 02/06/18 11:30 Chief Complaint (Nursing): Lower Extremity Problem/Injury History Per: Patient History/Exam Limitations: no limitations Onset/Duration Of Symptoms: Days (few days), Persistent Current Symptoms Are (Timing): Still Present Recent travel outside of the [place]: No Past Medical History Reviewed: Historical Data, Nursing Documentation, Vital Signs Vital Signs: Last Vital Signs Temp 97.9 F 02/06/18 15:37 Pulse 58 L 02/06/18 15:37 Resp 20 02/06/18 15:37 BP 147/92 H 02/06/18 15:37 Pulse Ox 20 L 02/06/18 15:37 - Medical History PMH: HTN, Hypothyroidism Denies: Atrial Fibrillation, Cardia Arrhythmia, CHF, Hypercholesterolemia, Hyperthyroidism, Mitral Valve Prolapse, Peripheral Edema, Chronic Kidney Disease Surgical History: Hernia Repair (right inguinal hernia) Denies: Pacemaker - [facility] Procedures SUPPLEMENT R INGUINAL REGION WITH SYNTH SUB, OPEN APPROACH (01/14/18) Family History: States: No Known Family Hx - Social History Hx Tobacco Use: No Hx Alcohol Use: No Hx Substance Use: No - Immunization History Hx Tetanus Toxoid Vaccination: No Hx Influenza Vaccination: No Hx Pneumococcal Vaccination: No Review Of Systems Constitutional: Negative for: Fever Cardiovascular: Negative for: Chest Pain, Edema Respiratory: Negative for: Shortness of Breath Musculoskeletal: Positive for: Leg Pain (anterior right thigh) Skin: Negative for: Rash Physical Exam - Physical Exam Appears: Non-toxic, No Acute Distress Skin: Normal Color, Warm, Dry, No Rash, Other (post-operation wound from hernia repair to right inguinal area) Head: Atraumatic, Normacephalic Oral Mucosa: Moist Chest: Symmetrical Cardiovascular: Rhythm Regular, No Murmur Respiratory: Normal Breath Sounds, No Rales, No Rhonchi, No Wheezing Gastrointestinal/Abdominal: Soft, No Tenderness Extremity: No Tenderness, No Swelling, Other (reproduceable pain with right leg extension over proximal anterior thigh) Neurological/Psych: Oriented x3, Normal Speech, Normal Cognition Gait: Unsteady ED Course And Treatment - CT Scan/US CT pelvis Other Rad Studies (CT/US): Interpreted By Me, Read By Radiologist CT/US Interpretation: ADDENDUM: Addendum dictation: Please note that there is 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 [ Addendum Report Added by Aman Rincon MD at 02/06/2018 16:15:02 ]. PROCEDURE: CT pelvis. HISTORY: R INGUINAL HERNIA REPAIR RO HEMATOMA. COMPARISON: CT abdomen/ pelvis 01/07/2018. TECHNIQUE: Following the intravenous administration of contrast material, contiguous 2.5 mm axial sections were acquired through the pelvis. Contrast administered: 100 mL Visipaque 320. Total exam DLP: 542.74 mGy-cm. This CT exam was performed using 1 or more of the following dose reduction techniques: Automated exposure control, adjustment of the mA and/or kV according to patient size, and/or use of iterative reconstruction technique. FINDINGS: The patient is status post right herniorrhaphy. There is a very small fluid collection adjacent to the internal inguinal ring, approximately 1.5 x 2.4 cm. There is no evidence of recurrent inguinal hernia. There is a small amount of gas seen tracking along the right sartorius muscle presumably related to recent herniorrhaphy surgery. There is diverticulosis of the sigmoid colon. There is no evidence of diverticulitis. No other abnormal bowel loops are appreciated. The urinary bladder is poorly distended but grossly unremarkable. The prostate is normal in appearance. There is no osseous abnormality appreciated. IMPRESSION: Very small fluid collection adjacent to the internal inguinal ring, status post herniorrhaphy. No evidence hematoma. Minor findings as above. Progress Note: Marcaine and kenalog administered. Progress - Time Time: 12:15 - Re-Evaluation Re-evaluation Note: 02/06/18 12:27 Dr Ward consulted at 12:15pm. Requested Kenalog and Marcaine to be administered to patient. Will evaluate patient in ER for local injection. 02/06/18 13:[address] WARD CLEARED FOR DC 02/06/18 14:[address] WARD NOW REQUESTING CT PELVIS. PT CLEARED FOR DC AFTERWARDS, STATES WILL FU CT 02/06/18 14:[address], BMP FROM 01/16 ACCEPTABLE FOR IVC - Data Reviewed Data Reviewed: Lab, Diagnostic imaging, Old records Disposition Counseled Patient/Family Regarding: Diagnosis, Need For Followup - Disposition Referrals: Mike Ward MD [Staff Provider] - Disposition: HOME/ ROUTINE Disposition Time: 15:25 Condition: IMPROVED Instructions: Postoperative Pain (DC) Forms: [employer] (Syriac) Print Language: TUVALUAN - Clinical Impression Clinical Impression: Leg pain - Scribe Statement The provider has reviewed the documentation as recorded by the Scribe Perlita Grissom All medical record entries made by the Scribe were at my direction and personally dictated by me. I have reviewed the chart and agree that the record accurately reflects my personal performance of the history, physical exam, medical decision making, and the department course for this patient. I have also personally directed, reviewed, and agree with the discharge instructions and disposition.
[2018-02-06 11:41] VITALS: RESP 20
[2018-02-06] MEDS ORDERED: Triamcinolone Acetonide 40 mg/mL Inj IAA ONE (12:15)
[2018-02-06] MEDS ORDERED: Bupivacaine HCl 0.25% PF (30 ml) Inj INFIL ONE (12:15)
[2018-02-06] MEDS ORDERED: Iodixanol 320 MG/ML 100 ML BOTTLE IV ONE (15:08)
[2018-02-06 15:38] VITALS: BP 147/92; PULSE 58; TEMP 97.9; O2SAT 20
--- NOTE | 2018-02-06 15:54 | CT ---
PROCEDURE: CT pelvis HISTORY: R INGUINAL HERNIA REPAIR RO HEMATOMA COMPARISON: CT abdomen/ pelvis 01/07/2018 TECHNIQUE: Following the intravenous administration of contrast material, contiguous 2.5 mm axial sections were acquired through the pelvis. Contrast administered: 100 mL Visipaque 320 Total exam DLP: 542.74 mGy-cm This CT exam was performed using 1 or more of the following dose reduction techniques: Automated exposure control, adjustment of the mA and/or kV according to patient size, and/or use of iterative reconstruction technique. FINDINGS: The patient is status post right herniorrhaphy. There is a very small fluid collection adjacent to the internal inguinal ring, approximately 1.5 x 2.4 cm. There is no evidence of recurrent inguinal hernia. There is a small amount of gas seen tracking along the right sartorius muscle presumably related to recent herniorrhaphy surgery. There is diverticulosis of the sigmoid colon. There is no evidence of diverticulitis. No other abnormal bowel loops are appreciated. The urinary bladder is poorly distended but grossly unremarkable. The prostate is normal in appearance. There is no osseous abnormality appreciated. IMPRESSION: Very small fluid collection adjacent to the internal inguinal ring, status post herniorrhaphy. No evidence hematoma. Minor findings as above.
--- NOTE | 2018-02-14 22:57 | CON ---
DATE: 02/14/2018 ER CONSULTATION This is a 63-year-old male who is one month status post right inguinal hernia repair. He has developed a nerve entrapment syndrome with pain down the anterior portion of his right thigh. He was seen in the emergency room for surgical consultation. He underwent a local injection of 0.25% Marcaine mixed with Kenalog. He tolerated the procedure well and will follow up in my office in three days. Mike Box MD
== END 2018-02-06 15:51 | disposition home or self-care (01) ==
LOC: C.ER 11:13
DX: M79.651 Pain in right thigh (principal)
CPT/HCPCS: 72193; 99284; J3301; Q9967

== ENCOUNTER 2018-02-14 10:25 | Day surgery (SDC) | payer OTHER ==
[2018-02-14] MEDS ORDERED: Lactated Ringer's 1,000 ML IV ONE (12:20)
[2018-02-14] MEDS ORDERED: Bupivacaine HCl 0.25% PF (30 ml) Inj ONE (12:20)
[2018-02-14] MEDS ORDERED: Doxycycline 100 mg Inj ONE (12:20)
[2018-02-14] MEDS ORDERED: Midazolam 2 MG/2 ML VIAL ONE (12:35)
[2018-02-14] MEDS ORDERED: Propofol 10 mg/ml Inj (20 ML) ONE (12:36)
[2018-02-14] MEDS ORDERED: Vancomycin 1 gm/D5W 200 ml 1 GM/200 ML BAG IVPB ONE (12:39)
[2018-02-14] MEDS ORDERED: Bacitracin Ointment 30 GM TUBE ONE (13:17)
[2018-02-14] MEDS ORDERED: HYDROmorphone 0.5 mg/0.5 ml ISec IVP PRN (13:50)
[2018-02-14] MEDS ORDERED: HYDROmorphone 0.5 mg/0.5 ml ISec ONE (13:57)
[2018-02-14] MEDS ORDERED: Oxycodone/Acetaminophen 5/325 mg Tab PO PRN (14:35)
[2018-02-14 15:35] VITALS: RESP 18
[2018-02-14 16:24] VITALS: BP 123/78; PULSE 77; TEMP 97.7; O2SAT 100
--- NOTE | 2018-02-15 02:57 | OP ---
PROCEDURE DATE: 02/14/2018 PREOPERATIVE DIAGNOSIS: Nerve entrapment right groin, status post hernia repair. POSTOPERATIVE DIAGNOSIS: Nerve entrapment right groin, status post hernia repair. PROCEDURE PERFORMED: Right inguinal exploration with decompression of the right inguinal canal and excision of the ilioinguinal nerve. SURGEON: Mike Box MD ANESTHESIA: General. BLOOD LOSS: 20 mL. POSTOPERATIVE CONDITION: Stable. INDICATIONS FOR SURGERY This is a 63-year-old male who underwent repair of a direct right inguinal hernia with a mesh 1 month ago on 01/16/2018. Almost immediately postoperatively, he developed a nerve entrapment syndrome with pain radiating down to the midportion of his right leg. He was treated with local injections without any relief. Since the patient was having trouble walking and frankly this is the worst case of nerve entrapment I had seen in my career, I thought it is reasonable to take him back to the operating room for decompression of the whole area and excision of nerves. DESCRIPTION OF PROCEDURE: The patient was taken to the operating room, general anesthesia administered. The right groin was prepped and draped. A right inguinal incision was made through the previous well-healed incision down to the external oblique aponeurosis. There was some scar tissue noted in this area and the aponeurosis was divided from the external ring proximally. The ilioinguinal nerve was found and excised. Next, a decompression took place at both cephalad and caudad of the external oblique aponeurosis in order to open up this whole area. A lateral incision where most of the pain was, dissection was carried down, any nerves encountered were divided. The mesh was well incorporated, and since it was well medial of the area of her problem, it was not dissected free but the tissue around it was dissected and any nervous tissue associated was also divided. The area was adequately decompressed and nerves adequately excised and divided. The wound was irrigated with copious amounts of saline solution. The subcutaneous tissue was closed only to maintain the decompressed nature of the wound and the skin was closed with clips. The patient tolerated the procedure well and returned to recovery room in stable condition. Mike Box MD [facility] # [id number]
== END 2018-02-14 16:25 | disposition home or self-care (01) ==
LOC: C.SDS 10:25
PROVIDERS: ATTEND Surgery
DX: K40.30 Unilateral inguinal hernia, with obstruction, without gangrene, not specified as recurrent (principal)
CPT/HCPCS: 64708; 88305; J1170; J2001; J2250; J2704; J3010; J3370; J7120

== ENCOUNTER 2018-02-19 12:13 | Emergency (ER) | payer OTHER ==
[2018-02-19 12:31] VITALS: TEMP 98.2
--- NOTE | 2018-02-19 15:48 | C.PDOC ---
History Of Present Illness Pt was sent in by Dr. Box. Dr. Box is here with him in the ED and just wants to given an injection for a "pinched nerve" in the right groin. Pt c/ o right upper thigh pain. Time Seen by Provider: 02/19/18 13:18 Chief Complaint (Nursing): Lower Extremity Problem/Injury Past Medical History Reviewed: Historical Data, Nursing Documentation, Vital Signs Vital Signs: Last Vital Signs Temp 98.2 F 02/19/18 12:29 Pulse 72 02/19/18 12:29 Resp 16 02/19/18 12:29 BP 135/75 02/19/18 12:29 Pulse Ox 95 02/19/18 12:29 - Medical History PMH: HTN, Hypothyroidism Surgical History: Hernia Repair (right inguinal hernia) - [facility] Procedures SUPPLEMENT R INGUINAL REGION WITH SYNTH SUB, OPEN APPROACH (01/14/18) Family History: States: Unknown Family Hx - Social History Hx Tobacco Use: No Hx Alcohol Use: No Hx Substance Use: No - Immunization History Hx Tetanus Toxoid Vaccination: No Hx Influenza Vaccination: No Hx Pneumococcal Vaccination: No Review Of Systems Except As Marked, All Systems Reviewed And Found Negative. Constitutional: Negative for: Fever, Weakness Cardiovascular: Negative for: Chest Pain Respiratory: Negative for: Shortness of Breath Gastrointestinal: Negative for: Abdominal Pain Genitourinary: Negative for: Dysuria Musculoskeletal: Negative for: Neck Pain, Back Pain Neurological: Negative for: Weakness, Seizures, Altered Mental Status Physical Exam - Physical Exam Appears: Non-toxic, No Acute Distress Skin: Warm, Dry Head: Atraumatic Eye(s): bilateral: PERRL, EOMI Neck: Normal ROM, Supple Cardiovascular: Rhythm Regular Respiratory: Normal Breath Sounds, No Accessory Muscle Use Gastrointestinal/Abdominal: Soft, No Tenderness, Other (Surgical wound on RLQ is closed with vance with no signs of infection) Back: No CVA Tenderness, No Vertebral Tenderness Male Genital: No Testicular Tenderness, No Testicular Swelling, No Scrotal Swelling Extremity: Normal ROM, No Pedal Edema, No Calf Tenderness Pulses: Right Dorsalis Pedis: Normal Neurological/Psych: Oriented x3, Normal Motor, Normal Sensation ED Course And Treatment O2 Sat by Pulse Oximetry: 95 Pulse Ox Interpretation: Normal Progress Note: Dr. Box gave pt the injection and states pt can now be discharged home. Reevaluation Time: 15:30 Disposition Counseled Patient/Family Regarding: Diagnosis, Need For Followup - Disposition Referrals: Mike Box MD [Staff Provider] - Disposition: HOME/ ROUTINE Disposition Time: 15:50 Condition: STABLE Additional Instructions: Follow up with your doctor. Return to the ER if you develop fever, redness, swelling, worsening of symptoms or if you have any other concerns. Forms: General Discharge Instructions - Clinical Impression Clinical Impression: Pain of right thigh
[2018-02-19 16:06] VITALS: BP 121/77; PULSE 51; RESP 18; O2SAT 97
--- NOTE | 2018-03-18 06:40 | PROCN ---
DATE: 02/19/2018 EMERGENCY ROOM PROGRESS/PROCEDURE NOTE SUBJECTIVE: This is a 63-year-old male presents to the emergency room directly from my office. He is two weeks status post a reoperation on a right inguinal hernia for entrapment syndrome. Since the surgery, the pain has lessened; however, it is changed in its location. It used to be going down the anterior midline portion of his thigh, now it is more lateral into his buttock area. Since pain is debilitating, he will now undergo an injection of Marcaine and steroid into the area. PROCEDURE: The area was prepped and draped. A 5 mL of Marcaine and 1 mL of Kenalog was drawn up into a syringe. Multiple areas surrounding the both incision and trigger site were injected. There was resolution of pain after this was performed. The patient tolerated the procedure well and was discharged from the emergency room. Mike Box MD
== END 2018-02-19 16:06 | disposition home or self-care (01) ==
LOC: C.ER 12:13
DX: M79.651 Pain in right thigh (principal)